=== PATIENT | male | born 1955 | race Caucasian/White ===

== ENCOUNTER 2019-01-05 16:05 | Inpatient (IN) | payer MEDICAID, OTHER ==
[~2019-01-05] VITALS: Ht 172.7 cm; Wt 87.0 kg
[2019-01-05] MEDS ORDERED: SOD CHLORIDE 0.9% 100 ML ONE (16:25)
[2019-01-05] MEDS ORDERED: IOHEXOL 100 ML ONE (16:25)
--- NOTE | 2019-01-05 16:30 | ERD ---
ER Documentation Chief Complaint Chief Complaint LOST BALANCE, CHANGES IN SPEECH THIS AM , LAST NORMAL SEEN LAST NIGHT HPI 63-year-old male with a history of hypertension presenting for left-sided leg and arm weakness, leg worse in his arm. He also noticed that he was having some difficulty speaking when he woke up. His last known well was last night at 10 PM when he went to sleep. At that time he was not having any of the symptoms. However he states that he had some difficulty sleeping but does not know why. He states that he also feels off balance when he is walking. ROS All systems reviewed and are negative except as per history of present illness. Medications Home Meds Reported Medications Pravastatin Sodium* (Pravastatin Sodium*) 10 Mg Tablet, 10 MG PO HS, TAB PT GETS THIS FROM [place] 01/05/19 Enalapril Maleate* (Enalapril Maleate*) 10 Mg Tablet, 10 MG PO BID, TAB 01/05/19 Allergies Allergies: Coded Allergies: No Known Allergy (Unverified , 01/05/19) PMhx/Soc Hx Miscellaneous Medical Probl: Yes (Hypertension) Hx Alcohol Use: No Hx Substance Use: No Hx Tobacco Use: Yes Smoking Status: Current every day smoker FmHx Family History: coronary disease; No diabetes Physical Exam Vitals Vital Signs Date Temp Pulse Resp B/P (MAP) Pulse Ox O2 O2 Flow FiO2 Time Delivery Rate 01/05/19 72 18 166/99 99 Room Air 18:20 (121) 01/05/19 73 16 166/99 98 Room Air 18:20 (121) 01/05/19 78 20 97 Room Air 17:37 01/05/19 98.1 87 20 172/96 100 Room Air 16:25 (121) 01/05/19 98.1 89 18 204/91 99 16:10 (128) Physical Exam Const: No acute distress Head: Atraumatic Eyes: Normal Conjunctiva, PERRLA, EOMI, no nystagmus ENT: Normal External Ears, Nose and Mouth. Neck: Full range of motion. No meningismus. Resp: Clear to auscultation bilaterally Cardio: Regular rate and rhythm, no murmurs. 2+ distal pulses in all 4 extremities Abd: Soft, non tender, non distended. Normal bowel sounds Skin: No petechiae or rashes Back: No midline or flank tenderness Ext: No cyanosis, or edema Neur: Awake and alert, no facial asymmetry, slightly slurred speech. Cranial nerves grossly intact. Strength and sensations intact in all 4 extremities. No pronator drift. Able to lift all of extremities against gravity and hold for 10 seconds. Normal steady gait. Normal balance. Psych: Normal Mood and Affect Result Diagram: 01/05/19 1620 01/05/19 1620 Results 24 hrs Laboratory Tests Test 01/05/19 16:20 01/05/19 16:35 01/05/19 17:30 White Blood Count 9.3 10^3/ul Red Blood Count 5.77 10^6/ul Hemoglobin 14.6 g/dl Hematocrit 43.8 % Mean Corpuscular Volume 75.9 fl Mean Corpuscular Hemoglobin 25.3 pg Mean Corpuscular 33.3 g/dl Hemoglobin Concent Red Cell Distribution Width 13.9 % Platelet Count 251 10^3/UL Mean Platelet Volume 10.9 fl Immature Granulocytes % 0.300 % Neutrophils % 57.3 % Lymphocytes % 32.7 % Monocytes % 6.1 % Eosinophils % 2.8 % Basophils % 0.8 % Nucleated Red Blood Cells % 0.0 /100WBC Immature Granulocytes # 0.030 10^3/ul Neutrophils # 5.4 10^3/ul Lymphocytes # 3.1 10^3/ul Monocytes # 0.6 10^3/ul Eosinophils # 0.3 10^3/ul Basophils # 0.1 10^3/ul Nucleated Red Blood Cells # 0.0 10^3/ul Prothrombin Time 12.0 Sec Prothrombin Time Ratio 0.9 INR International 0.88 Normalized Ratio Activated Partial Thromboplast 27.5 Sec Time Sodium Level 141 mmol/L Potassium Level 4.1 mmol/L Chloride Level 106 mmol/L Carbon Dioxide Level 23 mmol/L Anion Gap 12 Blood Urea Nitrogen 12 mg/dl Creatinine 0.75 mg/dl Est Glomerular Filtrat > 60 mL/min Rate mL/min Glucose Level 152 mg/dl Hemoglobin A1c 9.5 % Calcium Level 9.4 mg/dl Creatine Kinase 114 IU/L Creatine Kinase Index 1.1 Creatinine Kinase MB (Mass) 1.20 ng/ml Troponin I < 0.012 ng/ml Triglycerides Level 220 mg/dl Cholesterol Level 177 mg/dl LDL Cholesterol, Calculated 98 mg/dl HDL Cholesterol 35 mg/dl Cholesterol/HDL Ratio 5.0 RATIO Ethyl Alcohol Level < 10.0 mg/dl Bedside Glucose 144 mg/dL Urine Color YELLOW Urine Clarity CLEAR Urine pH 5.0 Urine Specific [place] 1.038 Urine Ketones NEGATIVE mg/dL Urine Nitrite NEGATIVE mg/dL Urine Bilirubin NEGATIVE mg/dL Urine Urobilinogen NEGATIVE mg/dL Urine Leukocyte Esterase 1+ Manan/ul Urine Microscopic RBC 1 /HPF Urine Microscopic WBC 2 /HPF Urine Hemoglobin 2+ mg/dL Urine Glucose NEGATIVE mg/dL Urine Total Protein NEGATIVE mg/dl Urine Opiates Screen Negative Urine Barbiturates Negative Urine Amphetamines Screen Negative Urine Benzodiazepines Screen Negative Urine Cocaine Screen Negative Urine Cannabinoids Negative Current Medications Medications Dose Sig/Antonio Start Time Status Last (Trade) Ordered Route PRN Stop Time Admin Dose Reason Admin IV Flush 10 ml STK-MED 01/05/19 DC (NS 10 ml) ONCE .ROUTE 16:25 01/05/19 16:26 Sodium 100 ml @ ud STK-MED 01/05/19 DC Chloride ONCE .ROUTE 16:01/05/19 16:26 Iohexol 100 ml @ ud STK-MED 01/05/19 DC ONCE .ROUTE 16:25 01/05/19 16:26 Aspirin 325 mg ONCE ONCE 01/05/19 DC 01/05/19 (Aspirin) PO 17:00 01/05/19 16:56 17:01 Clopidogrel 600 mg ONCE ONCE 01/05/19 DC 01/05/19 Bisulfate PO 17:00 01/05/19 16:56 (plaVIX) 17:01 Ondansetron 4 mg ER BRIDGE 01/05/19 HCl (Zofran PRN IV 18:00 01/06/19 Inj) NAUSEA/VOMITI 17:59 NG 650 mg ER BRIDGE 01/05/19 Acetaminophen PRN PO 18:00 01/06/19 (Tylenol .MILD PAIN 17:59 Tab) 1-3 OR TEMP Procedures/MDM EMERGENT LABS AND DIAGNOSTIC STUDIES: Lab Results above were reviewed and interpreted by me. CBC: no anemia or evidence of infection BMP: No e/o clinically significant electrolyte abnormality severe acidosis, alkalosis, renal failure, diabetic ketoacidosis Troponin within normal limits, not indicative of cardiac ischemia 12-lead EKG was interpreted by Sergio Segovia MD: Normal Sinus Rhythm with ventricular rate of 78 beats per minute Normal axis Normal intervals No acute ST or T wave changes suggestive of acute ischemia or STEMI. Radiology Results as interpreted by Radiology below were reviewed by Vincent Segovia MD: CT head shows no acute abnormalities CTA brain and neck: Multivessel stenosis seen, no vessel occlusions Initial Nursing notes reviewed. Previous Medical Records requested via the Electronic Health Record. EMERGENCY DEPARTMENT COURSE / MEDICAL DECISION MAKING: Immediately evaluated this patient upon arrival. He has dysarthria on exam but no focal weakness or sensory deficit elicited on exam. No evidence of a large vessel stroke symptoms. Patient is outside of the TPA window as his last known well was at 10 PM last night, greater than 12 hours ago. Since he was still in the thrombectomy window, CT and CTA of the brain and neck were ordered. I spoke with the tele-neurologist, Dr. Humble Martinez, who agrees that the patient would not be a TPA and likely would not be an interventional candidate. He evaluated the patient and based on the imaging studies and his exam, he recommended admission for further stroke work-up. He also recommended starting the patient on high-dose aspirin and giving him a load of Plavix orally. After reviewing his CTA results, he does not think patient is an interventional candidate. Critical Care Time: 45 minutes Treatments/Evaluations: Close monitoring and treatment of unstable vital signs, cardiorespiratory, and neurologic status, while maintaining tight balance of fluid, respiratory, and cardiac interventions. This time includes discussing the case with the patient and the patients family. This time does not include all procedures stated elsewhere in this record. This time also includes reviewing old records, labs and radiological studies. This time includes examining and re- examining the patient. Additionally, this time also includes arranging care with admitting and consulting physicians. Accepting Care Team: Current data and ongoing care discussed. Time: Time of admission Primary Provider: Dr. Sheikh Consulting: Dr. Sterling Martinez Outstanding Data: none Departure Diagnosis: Primary Impression: Dysarthria Additional Impression: Subjective weakness Condition: Serious JOHANNA SEGOVIA MD Jan 05, 2019 16:30
--- NOTE | 2019-01-05 16:46 | STROKE ---
Date/Time of Note Date/Time of Note DATE: 01/05/19 TIME: 16:45 Patient Information General Patient location: emergency Arrival Date Age 63 Gender male Weight 88.7 kg POC Glucose Glucose Result Bedside Glucose - 72 Hours Test 01/05/19 16:35 Bedside Glucose 144 mg/dL (70-220) Vital Signs Vital Signs Vital Signs Date Temp Pulse Resp B/P (MAP) Pulse Ox O2 O2 Flow FiO2 Time Delivery Rate 01/05/19 98.1 87 20 172/96 100 Room Air 16:25 (121) Patient History Current Medications Allergies: Coded Allergies: No Known Allergy (Unverified , 01/05/19) History & Physical History of Present Illness 63 M PMH smoker, HTN LKW 2200 PST 01/04/2019 with wake-up dysarthria and mild left hemiparesis NIH Stroke Scale NIH Stroke Scale [id number] Total Score: [id number] Date/Time Recorded DATE: 01/05/19 TIME: 16:45 Submitted By Sterling Schneider t-PA Imaging Review Date/Time Imaging Reviewed DATE: 01/05/19 TIME: 16:45 t-PA Administration Recommendation: No Weight 88.7 kg Recommedation submitted by Sterling Schneider Reason t-PA not Recommended Not in window Recommendations Recommendation 63 M with clinical small-vessel stroke causing dysarthria and mild left hemiparesis. Not acute intervention candidate. - Admission for initial stroke studies: MRI Brain, TTE with bubble, blood cultures, telemetry, EKG, LDL, A1c, SP, PT, OT. Further testing per these initial results/evaluations - F/u pending CTA Head/Neck report - Perform bedside swallow testing in ED and load with ASA 325 mg PO and Plavix 600 mg PO if passes and not already on these agents at home. Would continue ASA at 81 mg PO QD and Plavix at 75 mg PO QD starting tomorrow. Duration of dual- antiplatelet therapy per local Neurology team - Frequent neuro checks per protocol - Strict normonatremia, normothermia, normoglycemia - Permissive SBP to 180 for first 24 hours during stroke work-up - Please consult local Neurologist to guide further recs STERLING SCHNEIDER MD Jan 05, 2019 16:46
[2019-01-05] MEDS ORDERED: ASPIRIN 325 MG TAB PO ONE (17:00)
[2019-01-05] MEDS ORDERED: CLOPIDOGREL 75 MG TAB PO ONE (17:00)
[2019-01-05] MEDS ORDERED: ENAL10TA PO (17:29)
[2019-01-05] MEDS ORDERED: PRAV10TA43 PO (17:29)
[2019-01-05] MEDS ORDERED: ONDANSETRON 4 MG INJ IV PRN ×2 (18:00→19:00)
[2019-01-05] MEDS ORDERED: ACETAMINOPHEN 325 MG TAB PO PRN ×2 (18:00→19:00)
--- NOTE | 2019-01-05 18:56 | HP ---
Date/Time of Note Date/Time of Note DATE: 01/05/19 TIME: 18:54 Assessment/Plan VTE Prophylaxis SCD applied (from Nsg): Yes Pharmacological prophylaxis: other Lines/Catheters IV Catheter Type (from Nrsg): Saline Lock Assessment/Plan Hospital Course A/P: 63 M p/w: #Slurred speech left-sided weakness: Rule out stroke versus TIA. 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 -Allow for permissive hypertension, continue PT, OT, speech therapy consult -Continue aspirin Plavix as recommended by telemetry neurologist -Check MRI of the brain, echocardiogram, carotid Doppler study, high-dose statin -Neurochecks every 4 hours and get neurology consult #Smoking history: Counseled on cessation, ordered for nicotine patch # HTN: Patient did present with systolic blood pressure in the low 200 range, again allow for permissive hypertension at least for the first 24 hours so hold home blood pressure medicines for now Result Diagram: 01/05/19 1620 01/05/19 1620 Results 24hrs Laboratory Tests Test 01/05/19 16:20 01/05/19 16:35 01/05/19 17:30 White Blood Count 9.3 Red Blood Count 5.77 Hemoglobin 14.6 Hematocrit 43.8 Mean Corpuscular Volume 75.9 L Mean Corpuscular Hemoglobin 25.3 L Mean Corpuscular Hemoglobin Concent 33.3 Red Cell Distribution Width 13.9 Platelet Count 251 Mean Platelet Volume 10.9 H Immature Granulocytes % 0.300 Neutrophils % 57.3 Lymphocytes % 32.7 Monocytes % 6.1 Eosinophils % 2.8 Basophils % 0.8 Nucleated Red Blood Cells % 0.0 Immature Granulocytes # 0.030 Neutrophils # 5.4 Lymphocytes # 3.1 H Monocytes # 0.6 Eosinophils # 0.3 Basophils # 0.1 Nucleated Red Blood Cells # 0.0 Prothrombin Time 12.0 Prothrombin Time Ratio 0.9 INR International Normalized Ratio 0.88 Activated Partial Thromboplast Time 27.5 Sodium Level 141 Potassium Level 4.1 Chloride Level 106 Carbon Dioxide Level 23 Anion Gap 12 Blood Urea Nitrogen 12 Creatinine 0.75 Est Glomerular Filtrat Rate mL/min > 60 Glucose Level 152 Hemoglobin A1c 9.5 H Calcium Level 9.4 Creatine Kinase 114 Creatine Kinase Index 1.1 Creatinine Kinase MB (Mass) 1.20 Troponin I < 0.012 Triglycerides Level 220 H Cholesterol Level 177 LDL Cholesterol, Calculated 98 HDL Cholesterol 35 Cholesterol/HDL Ratio 5.0 Ethyl Alcohol Level < 10.0 H Bedside Glucose 144 Urine Color YELLOW Urine Clarity CLEAR Urine pH 5.0 Urine Specific [place] 1.038 H Urine Ketones NEGATIVE Urine Nitrite NEGATIVE Urine Bilirubin NEGATIVE Urine Urobilinogen NEGATIVE Urine Leukocyte Esterase 1+ H Urine Microscopic RBC 1 Urine Microscopic WBC 2 Urine Hemoglobin 2+ H Urine Glucose NEGATIVE Urine Total Protein NEGATIVE Urine Opiates Screen Negative Urine Barbiturates Negative Urine Amphetamines Screen Negative Urine Benzodiazepines Screen Negative Urine Cocaine Screen Negative Urine Cannabinoids Negative HPI/ROS Admit Date/Time Admit Date/Time Hx of Present Illness 63-year-old male past medical history of hypertension, smoking, who presents with left-sided leg and arm weakness. Symptoms began early this morning, patient also noticed that he was having some difficulty speaking when he woke up today. The last known well was last night at 10 PM when patient went to sleep, although patient stated that he had some difficulty sleeping but does not know why. He states that he also feels off balance when he is walking. Denies chest pain, shortness of breath, upper lower GI bleeding, fever chills, diarrhea constipation, nausea or vomiting. When the patient came in today code stroke was called and patient was given Plavix loading dose and aspirin. 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 PMH/Family/Social Past Medical History Medications Current Medications Ondansetron HCl (Zofran Inj) 4 mg ER BRIDGE PRN IV NAUSEA/VOMITING; Start 01/05/19 at 18:00; Stop 01/06/19 at 17:59 Acetaminophen (Tylenol Tab) 650 mg ER BRIDGE PRN PO .MILD PAIN 1-3 OR TEMP; Start 01/05/19 at 18:00; Stop 01/06/19 at 17:59 Coded Allergies: No Known Allergy (Unverified , 01/05/19) Past Surgical History Past Surgical Hx: no surgical history Social History Alcohol Use: none Smoking Status: Current every day smoker Drug Use: none Exam/Review of Systems Vital Signs Vitals Vital Signs Date Temp Pulse Resp B/P (MAP) Pulse Ox O2 O2 Flow FiO2 Time Delivery Rate 01/05/19 72 18 166/99 99 Room Air 18:20 (121) 01/05/19 98.1 16:25 Exam Exam Gen: lying in bed, No acute distress Head: Atraumatic Eyes: Normal Conjunctiva, PERRLA, EOMI, no nystagmus ENT: Normal External Ears, Nose and Mouth. Neck: Full range of motion. No meningismus. Resp: Clear to auscultation bilaterally Cardio: Regular rate and rhythm, no murmurs. 2+ distal pulses in all 4 extremities Abd: Soft, non tender, non distended. Normal bowel sounds Ext: No LE edema B/L Neuro: Awake and alert, no facial asymmetry, slightly slurred speech. Cranial nerves grossly intact. Strength and sensations intact in all 4 extremities. TERESSA PEARSON. Jan 05, 2019 18:56
[2019-01-05] MEDS ORDERED: HYDROCODONE/APAP (5/325) TAB PO PRN (19:00)
[2019-01-05] MEDS ORDERED: morphine 2 MG INJ IV PRN (19:00)
[2019-01-05] MEDS ORDERED: NITROGLYCERIN (SL) 0.4 MG TAB SL PRN (19:00)
[2019-01-05] MEDS ORDERED: MAGNESIUM HYDROXIDE 30ML CUP PO PRN (19:00)
[2019-01-05] MEDS ORDERED: LORAZEPAM 2 MG INJ IV PRN (19:00)
[2019-01-05] MEDS ORDERED: DOCUSATE SODIUM 100 MG CAP PO PRN (19:00)
[2019-01-05] MEDS ORDERED: ALBUTEROL/IPRATROPIUM (NEB) 3 ML AMP HHN PRN (19:00)
[2019-01-05] MEDS ORDERED: NACL 0.9% 3 ML SYG IV SCH (19:00)
[2019-01-05] MEDS ORDERED: hydrALAzine 20 MG INJ IV PRN (19:00)
--- NOTE | 2019-01-05 20:30 | CONSI ---
Assessment/Plan Assessment/Plan Assessment/Plan (Recall) 63 M c/ known HTN and tobacco dependence, who presents for evaluation of left hemiparesis and dysarthria concerning for acute stroke. CTH was w/o obvious acute pathology, though notable for a chronic lacune. CTA Head showed intracranial atherosclerosis.. TTE was unrevealing.. LDL 95; A1C >9%, UDS Neg P: Await MRI brain for further characterization Agree w/ asa/plavix daily for 3 month, then Plavix monotherapy thereafter Lipitor 80mg hs for now (goal LDL < 70) Ceo [employer] re: tobacco cessation PT/OT/ST as necessary BP, glucose and other medical management per primary Will follow clinically Consultation Date/Type/Reason Admit Date/Time Type of Consult Neurology Reason for Consultation left sided weakness Requesting Provider: TERESSA PEARSON Date/Time of Note DATE: 01/05/19 TIME: 20:30 Hx of Present Illness 63-year-old male past medical history of hypertension, smoking, who presents with left-sided leg and arm weakness. Symptoms began early this morning, patient also noticed that he was having some difficulty speaking when he woke up today. The last known well was last night at 10 PM when patient went to sleep, although patient stated that he had some difficulty sleeping but does not know why. He states that he also feels off balance when he is walking. Denies chest pain, shortness of breath, upper lower GI bleeding, fever chills, diarrhea constipation, nausea or vomiting. When the patient came in today code stroke was called and patient was given Plavix loading dose and aspirin. 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 per HPI Objective Exam Vitals Vital Signs Date Temp Pulse Resp B/P (MAP) Pulse Ox O2 O2 Flow FiO2 Time Delivery Rate 01/05/19 70 16 183/92 98 Room Air 20:19 (122) 01/05/19 98.1 16:25 Exam PE: Gen Appearance: No Apparent Distress HEENT: Normocephalic Cardiovascular: Regular rate Lungs: Clear bilaterally Abdomen: Soft Extremities: Dry NE: The patient was alert and oriented. Language was normal. Fund of knowledge was normal. Pupils were equal and reactive to light. There was no afferent pupillary defect. Visual young were normal. Funduscopic examination was limited. Extra-ocular movements were full. Ptosis was absent. There was no nystagmus. Facial sensation was normal. Face was symmetric with normal strength. Hearing was intact. Palate movements were normal. Neck strength was normal. There was normal tongue bulk and speed of movement. There is mild dysarthria. Tone was normal. Muscle bulk was normal. I did not see fasciculations. Left leg was mildly weak. Vibration sensation was normal. Temperature and pinprick sensation was normal. Rapid alternating movements were normal. There was no dysmetria. There was no intention tremor. Gait was deferred due to bedrest. Arm and leg reflexes were symmetric. Hill's sign was absent. Plantar responses were flexor. Results Result Diagram: 01/05/19 1620 01/05/19 1620 Results 24hrs Laboratory Tests Test 01/05/19 16:20 01/05/19 16:35 01/05/19 17:30 White Blood Count 9.3 Red Blood Count 5.77 Hemoglobin 14.6 Hematocrit 43.8 Mean Corpuscular Volume 75.9 L Mean Corpuscular Hemoglobin 25.3 L Mean Corpuscular Hemoglobin Concent 33.3 Red Cell Distribution Width 13.9 Platelet Count 251 Mean Platelet Volume 10.9 H Immature Granulocytes % 0.300 Neutrophils % 57.3 Lymphocytes % 32.7 Monocytes % 6.1 Eosinophils % 2.8 Basophils % 0.8 Nucleated Red Blood Cells % 0.0 Immature Granulocytes # 0.030 Neutrophils # 5.4 Lymphocytes # 3.1 H Monocytes # 0.6 Eosinophils # 0.3 Basophils # 0.1 Nucleated Red Blood Cells # 0.0 Prothrombin Time 12.0 Prothrombin Time Ratio 0.9 INR International Normalized Ratio 0.88 Activated Partial Thromboplast Time 27.5 Sodium Level 141 Potassium Level 4.1 Chloride Level 106 Carbon Dioxide Level 23 Anion Gap 12 Blood Urea Nitrogen 12 Creatinine 0.75 Est Glomerular Filtrat Rate mL/min > 60 Glucose Level 152 Hemoglobin A1c 9.5 H Calcium Level 9.4 Creatine Kinase 114 Creatine Kinase Index 1.1 Creatinine Kinase MB (Mass) 1.20 Troponin I < 0.012 Triglycerides Level 220 H Cholesterol Level 177 LDL Cholesterol, Calculated 98 HDL Cholesterol 35 Cholesterol/HDL Ratio 5.0 Free Thyroxine 1.36 Ethyl Alcohol Level < 10.0 H Bedside Glucose 144 Urine Color YELLOW Urine Clarity CLEAR Urine pH 5.0 Urine Specific [place] 1.038 H Urine Ketones NEGATIVE Urine Nitrite NEGATIVE Urine Bilirubin NEGATIVE Urine Urobilinogen NEGATIVE Urine Leukocyte Esterase 1+ H Urine Microscopic RBC 1 Urine Microscopic WBC 2 Urine Hemoglobin 2+ H Urine Glucose NEGATIVE Urine Total Protein NEGATIVE Urine Opiates Screen Negative Urine Barbiturates Negative Urine Amphetamines Screen Negative Urine Benzodiazepines Screen Negative Urine Cocaine Screen Negative Urine Cannabinoids Negative Past Medical History reviewed Home Meds Reported Medications Pravastatin Sodium* (Pravastatin Sodium*) 10 Mg Tablet, 10 MG PO HS, TAB PT GETS THIS FROM [place] 01/05/19 Enalapril Maleate* (Enalapril Maleate*) 10 Mg Tablet, 10 MG PO BID, TAB 01/05/19 Medications Current Medications IV Flush (NS 3 ml) 3 ml PER PROTOCOL IV ; Start 01/05/19 at 19:00 Ondansetron HCl (Zofran Inj) 4 mg Q6H PRN IV NAUSEA/VOMITING; Start 01/05/19 at 19:00 Acetaminophen (Tylenol Tab) 650 mg Q6H PRN PO .PAIN 1-3 OR TEMP; Start 01/05/19 at 19:00 Acetaminophen/ Hydrocodone Bitart ([place] (5/325)) 1 tab Q6H PRN PO .MOD PAIN 4-6; Start 01/05/19 at 19:00 Morphine Sulfate (morphine) 2 mg Q4H PRN IV .SEVERE PAIN 7-10; Start 01/05/19 at 19:00 Docusate Sodium (Colace) 100 mg Q12H PRN PO .CONSTIPATION; Start 01/05/19 at 19:00 Magnesium Hydroxide (Milk Of Mag) 30 ml DAILY PRN PO .CONSTIPATION; Start 01/05/19 at 19:00 Famotidine (Pepcid) 20 mg DAILY PO ; Start 01/05/19 at 19:00 Sodium Chloride 1,000 ml @ 75 mls/hr [id number] IV ; Start 01/05/19 at 18:49 Lorazepam (Ativan) 0.5 mg Q6H PRN IV ANXIETY; Start 01/05/19 at 19:00 Albuterol/ Ipratropium (Duoneb) 3 ml Q4H RESP THERAPY PRN HHN SHORTNESS OF BREATH; Start 01/05/19 at 19:00 Hydralazine HCl (Apresoline) 10 mg Q6H PRN IV ELEVATED BLOOD PRESSURE; Start 01/05/19 at 19:00 Nitroglycerin (Nitroglycerin (Sl Tab) 0.4 Mg) 1 tab Q5M PRN SL ANGINA; Start 01/05/19 at 19:00 Nicotine (Nicoderm 21 Mg/ 24hr) 1 patch DAILY TRANSDERM ; Start 01/06/19 at 09:00 Aspirin (Ecotrin) 325 mg DAILY PO ; Start 01/06/19 at 09:00 Clopidogrel Bisulfate (plaVIX) 75 mg DAILY PO ; Start 01/06/19 at 09:00 Allergies: Coded Allergies: No Known Allergy (Unverified , 01/05/19) Past Surgical History Past Surgical Hx: no surgical history Social History Alcohol Use: none Smoking Status: Current every day smoker Drug Use: none SANTIAGO HONEYCUTT Jan 05, 2019 20:30
[2019-01-05] MEDS: FAMOTIDINE 20 MG TAB PO SCH (21:32)
[2019-01-05] MEDS: SOD CHLORIDE 0.45% 1,000 ML IV SCH (21:35)
[2019-01-05 23:05] VITALS: Ht 172.7 cm; Wt 87.0 kg
[2019-01-05 23:14] VITALS: BP 183/93; PULSE 69; RESP 18
[2019-01-06] VITALS: BP 174/94; PULSE 72; RESP 18
[2019-01-06] MEDS ORDERED: GLUCOSE GEL 15 GRAM TUBE PO PRN ×2 (01:30)
[2019-01-06] MEDS ORDERED: GLUCAGON 1 MG INJ IM PRN (01:30)
[2019-01-06] MEDS ORDERED: DEXTROSE 50% 50 ML SYRINGE IV PRN ×2 (01:30)
[2019-01-06] MEDS ORDERED: GLUCOSE GEL 15 GRAM TUBE BUCCAL PRN (01:30)
[2019-01-06 04:00] VITALS: BP 141/90; PULSE 73; RESP 20
[2019-01-06] MEDS: INSULIN ASPART [NOVOLOG] 3 ML PEN SC SCH ×5 (05:00→21:10)
[2019-01-06 07:21] VITALS: BP 144/81; PULSE 68; RESP 20
[2019-01-06] MEDS: NICOTINE (21 MG/24 HR) PATCH TRANSDERM SCH (09:00)
[2019-01-06] MEDS ORDERED: ASPIRIN (EC) 325 MG TAB PO SCH (09:00)
--- NOTE | 2019-01-06 09:15 | PN ---
Date/Time of Note Date/Time of Note DATE: 01/06/19 TIME: 09:08 Assessment/Plan VTE Prophylaxis SCD applied (from Nsg): Yes Pharmacological prophylaxis: other Lines/Catheters IV Catheter Type (from Nrsg): Saline Lock Assessment/Plan Hospital Course S: Patient with less focal deficits now, waiting to be seen by neurology team is still waiting for brain MRI. Asking when he can eat. O: VS- see below PE: Gen: lying in bed, No acute distress Head: Atraumatic Eyes: Normal Conjunctiva, PERRLA, EOMI, no nystagmus ENT: Normal External Ears, Nose and Mouth. Neck: Full range of motion. No meningismus. Resp: Clear to auscultation bilaterally Cardio: Regular rate and rhythm, no murmurs. 2+ distal pulses in all 4 ext remities Abd: Soft, non tender, non distended. Normal bowel sounds Ext: No LE edema B/L Neuro: Awake and alert, no facial asymmetry, slightly slurred speech. Cranial nerves grossly intact. Strength and sensations intact in all 4 extremities. A/P: 63 M p/w: #Slurred speech left-sided weakness: Rule out stroke versus TIA. 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 -For now continue to allow for permissive hypertension, continue PT, OT, speech therapy consult -Continue aspirin and Plavix as recommended by telemetry neurologist -Follow-up results of MRI of the brain, echocardiogram, continue high-dose statin -Neurochecks every 4 hours and follow-up further recommendations from neurology consult #Smoking history: Counseled on cessation, nicotine patch # HTN: Patient did present with systolic blood pressure in the low 200 range, again allow for permissive hypertension at least for the first 24 hours so hold home blood pressure medicines for now Result Diagram: 01/06/19 0536 01/06/19 0536 Results 24hrs Laboratory Tests Test 01/05/19 16:20 01/05/19 16:35 01/05/19 17:30 01/06/19 01:29 White Blood Count 9.3 Red Blood Count 5.77 Hemoglobin 14.6 Hematocrit 43.8 Mean Corpuscular Volume 75.9 L Mean Corpuscular 25.3 L Hemoglobin Mean Corpuscular 33.3 Hemoglobin Concent Red Cell Distribution 13.9 Width Platelet Count 251 Mean Platelet Volume 10.9 H Immature Granulocytes % 0.300 Neutrophils % 57.3 Lymphocytes % 32.7 Monocytes % 6.1 Eosinophils % 2.8 Basophils % 0.8 Nucleated Red Blood 0.0 Cells % Immature Granulocytes # 0.030 Neutrophils # 5.4 Lymphocytes # 3.1 H Monocytes # 0.6 Eosinophils # 0.3 Basophils # 0.1 Nucleated Red Blood 0.0 Cells # Prothrombin Time 12.0 Prothrombin Time Ratio 0.9 INR International 0.88 Normalized Ratio Activated 27.5 Partial Thromboplast Time Sodium Level 141 Potassium Level 4.1 Chloride Level 106 Carbon Dioxide Level 23 Anion Gap 12 Blood Urea Nitrogen 12 Creatinine 0.75 Est Glomerular Filtrat > 60 Rate mL/min Glucose Level 152 Hemoglobin A1c 9.5 H Calcium Level 9.4 Creatine Kinase 114 Creatine Kinase Index 1.1 Creatinine Kinase MB 1.20 (Mass) Troponin I < 0.012 Triglycerides Level 220 H Cholesterol Level 177 LDL Cholesterol, 98 Calculated HDL Cholesterol 35 Cholesterol/HDL Ratio 5.0 Free Thyroxine 1.36 Ethyl Alcohol Level < 10.0 H Bedside Glucose 144 125 Urine Color YELLOW Urine Clarity CLEAR Urine pH 5.0 Urine Specific [place] 1.038 H Urine Ketones NEGATIVE Urine Nitrite NEGATIVE Urine Bilirubin NEGATIVE Urine Urobilinogen NEGATIVE Urine Leukocyte Esterase 1+ H Urine Microscopic RBC 1 Urine Microscopic WBC 2 Urine Hemoglobin 2+ H Urine Glucose NEGATIVE Urine Total Protein NEGATIVE Urine Opiates Screen Negative Urine Barbiturates Negative Urine Amphetamines Negative Screen Urine Benzodiazepines Negative Screen Urine Cocaine Screen Negative Urine Cannabinoids Negative Test 01/06/19 05:03 01/06/19 05:36 01/06/19 07:52 Bedside Glucose 136 151 White Blood Count 8.0 Red Blood Count 5.54 Hemoglobin 14.2 Hematocrit 42.0 Mean Corpuscular Volume 75.8 L Mean Corpuscular 25.6 L Hemoglobin Mean Corpuscular 33.8 Hemoglobin Concent Red Cell Distribution 14.1 Width Platelet Count 246 Mean Platelet Volume 11.0 H Immature Granulocytes % 0.400 Neutrophils % 57.9 Lymphocytes % 30.8 Monocytes % 6.5 Eosinophils % 3.8 Basophils % 0.6 Nucleated Red Blood 0.0 Cells % Immature Granulocytes # 0.030 Neutrophils # 4.6 Lymphocytes # 2.5 Monocytes # 0.5 Eosinophils # 0.3 Basophils # 0.1 Nucleated Red Blood 0.0 Cells # Sodium Level 141 Potassium Level 3.9 Chloride Level 102 Carbon Dioxide Level 28 Anion Gap 11 Blood Urea Nitrogen 11 Creatinine 0.83 Est Glomerular Filtrat > 60 Rate mL/min Glucose Level 136 Hemoglobin A1c 9.4 H Calcium Level 9.1 Phosphorus Level 3.9 Magnesium Level 1.7 Triglycerides Level 246 H Cholesterol Level 172 LDL Cholesterol, 95 Calculated HDL Cholesterol 28 L Cholesterol/HDL Ratio 6.1 Thyroid Stimulating 2.110 Hormone (TSH) Exam/Review of Systems Exam Vitals Vital Signs Date Temp Pulse Resp B/P (MAP) Pulse Ox O2 O2 Flow FiO2 Time Delivery Rate 01/06/19 98.0 68 20 144/81 93 Room Air 07:21 (102) Intake and Output 01/05/19 01/05/19 01/06/19 1515:00 23:00 07:00 OutputOutput Total 240 ml BalanceBalance -240 ml Results Results 24hrs Laboratory Tests Test 01/05/19 16:20 01/05/19 16:35 01/05/19 17:30 01/06/19 01:29 White Blood Count 9.3 Red Blood Count 5.77 Hemoglobin 14.6 Hematocrit 43.8 Mean Corpuscular Volume 75.9 L Mean Corpuscular 25.3 L Hemoglobin Mean Corpuscular 33.3 Hemoglobin Concent Red Cell Distribution 13.9 Width Platelet Count 251 Mean Platelet Volume 10.9 H Immature Granulocytes % 0.300 Neutrophils % 57.3 Lymphocytes % 32.7 Monocytes % 6.1 Eosinophils % 2.8 Basophils % 0.8 Nucleated Red Blood 0.0 Cells % Immature Granulocytes # 0.030 Neutrophils # 5.4 Lymphocytes # 3.1 H Monocytes # 0.6 Eosinophils # 0.3 Basophils # 0.1 Nucleated Red Blood 0.0 Cells # Prothrombin Time 12.0 Prothrombin Time Ratio 0.9 INR International 0.88 Normalized Ratio Activated 27.5 Partial Thromboplast Time Sodium Level 141 Potassium Level 4.1 Chloride Level 106 Carbon Dioxide Level 23 Anion Gap 12 Blood Urea Nitrogen 12 Creatinine 0.75 Est Glomerular Filtrat > 60 Rate mL/min Glucose Level 152 Hemoglobin A1c 9.5 H Calcium Level 9.4 Creatine Kinase 114 Creatine Kinase Index 1.1 Creatinine Kinase MB 1.20 (Mass) Troponin I < 0.012 Triglycerides Level 220 H Cholesterol Level 177 LDL Cholesterol, 98 Calculated HDL Cholesterol 35 Cholesterol/HDL Ratio 5.0 Free Thyroxine 1.36 Ethyl Alcohol Level < 10.0 H Bedside Glucose 144 125 Urine Color YELLOW Urine Clarity CLEAR Urine pH 5.0 Urine Specific [place] 1.038 H Urine Ketones NEGATIVE Urine Nitrite NEGATIVE Urine Bilirubin NEGATIVE Urine Urobilinogen NEGATIVE Urine Leukocyte Esterase 1+ H Urine Microscopic RBC 1 Urine Microscopic WBC 2 Urine Hemoglobin 2+ H Urine Glucose NEGATIVE Urine Total Protein NEGATIVE Urine Opiates Screen Negative Urine Barbiturates Negative Urine Amphetamines Negative Screen Urine Benzodiazepines Negative Screen Urine Cocaine Screen Negative Urine Cannabinoids Negative Test 01/06/19 05:03 01/06/19 05:36 01/06/19 07:52 Bedside Glucose 136 151 White Blood Count 8.0 Red Blood Count 5.54 Hemoglobin 14.2 Hematocrit 42.0 Mean Corpuscular Volume 75.8 L Mean Corpuscular 25.6 L Hemoglobin Mean Corpuscular 33.8 Hemoglobin Concent Red Cell Distribution 14.1 Width Platelet Count 246 Mean Platelet Volume 11.0 H Immature Granulocytes % 0.400 Neutrophils % 57.9 Lymphocytes % 30.8 Monocytes % 6.5 Eosinophils % 3.8 Basophils % 0.6 Nucleated Red Blood 0.0 Cells % Immature Granulocytes # 0.030 Neutrophils # 4.6 Lymphocytes # 2.5 Monocytes # 0.5 Eosinophils # 0.3 Basophils # 0.1 Nucleated Red Blood 0.0 Cells # Sodium Level 141 Potassium Level 3.9 Chloride Level 102 Carbon Dioxide Level 28 Anion Gap 11 Blood Urea Nitrogen 11 Creatinine 0.83 Est Glomerular Filtrat > 60 Rate mL/min Glucose Level 136 Hemoglobin A1c 9.4 H Calcium Level 9.1 Phosphorus Level 3.9 Magnesium Level 1.7 Triglycerides Level 246 H Cholesterol Level 172 LDL Cholesterol, 95 Calculated HDL Cholesterol 28 L Cholesterol/HDL Ratio 6.1 Thyroid Stimulating 2.110 Hormone (TSH) Medications Medication Current Medications IV Flush (NS 3 ml) 3 ml PER PROTOCOL IV ; Start 01/05/19 at 19:00 Ondansetron HCl (Zofran Inj) 4 mg Q6H PRN IV NAUSEA/VOMITING; Start 01/05/19 at 19:00 Acetaminophen (Tylenol Tab) 650 mg Q6H PRN PO .PAIN 1-3 OR TEMP; Start 01/05/19 at 19:00 Acetaminophen/ Hydrocodone Bitart ([place] (5/325)) 1 tab Q6H PRN PO .MOD PAIN 4- 6; Start 01/05/19 at 19:00 Morphine Sulfate (morphine) 2 mg Q4H PRN IV .SEVERE PAIN 7-10; Start 01/05/19 at 19:00 Docusate Sodium (Colace) 100 mg Q12H PRN PO .CONSTIPATION; Start 01/05/19 at 19:00 Magnesium Hydroxide (Milk Of Mag) 30 ml DAILY PRN PO .CONSTIPATION; Start 01/05/19 at 19:00 Famotidine (Pepcid) 20 mg DAILY PO Last administered on 01/05/19at 21:32; Admin Dose 20 MG; Start 01/05/19 at 19:00 Sodium Chloride 1,000 ml @ 75 mls/hr [id number] IV Last administered on 01/05/19at 21:35; Admin Dose 75 MLS/HR; Start 01/05/19 at 18:49 Lorazepam (Ativan) 0.5 mg Q6H PRN IV ANXIETY; Start 01/05/19 at 19:00 Albuterol/ Ipratropium (Duoneb) 3 ml Q4H RESP THERAPY PRN HHN SHORTNESS OF BREATH; Start 01/05/19 at 19:00 Hydralazine HCl (Apresoline) 10 mg Q6H PRN IV ELEVATED BLOOD PRESSURE; Start 01/05/19 at 19:00 Nitroglycerin (Nitroglycerin (Sl Tab) 0.4 Mg) 1 tab Q5M PRN SL ANGINA; Start 01/05/19 at 19:00 Nicotine (Nicoderm 21 Mg/ 24hr) 1 patch DAILY TRANSDERM ; Start 01/06/19 at 09:00 Aspirin (Ecotrin) 325 mg DAILY PO ; Start 01/06/19 at 09:00 Clopidogrel Bisulfate (plaVIX) 75 mg DAILY PO ; Start 01/06/19 at 09:00 Insulin Aspart (Novolog Insulin Pen) NOVOLOG *MILD* ALGORI... Q4 SC Last administered on 01/06/19at 08:21; Admin Dose 1 UNIT; Start 01/06/19 at 05:00 Miscellaneous Information 1 ea NOTE XX ; Start 01/06/19 at 01:30 Glucose (Glutose) 15 gm Q15M PRN PO DECREASED GLUCOSE; Start 01/06/19 at 01:30 Glucose (Glutose) 22.5 gm Q15M PRN PO DECREASED GLUCOSE; Start 01/06/19 at 01:30 Dextrose (D50w Syringe) 25 ml Q15M PRN IV DECREASED GLUCOSE; Start 01/06/19 at 01:30 Dextrose (D50w Syringe) 50 ml Q15M PRN IV DECREASED GLUCOSE; Start 01/06/19 at 01:30 Glucagon (Glucagen) 1 mg Q15M PRN IM DECREASED GLUCOSE; Start 01/06/19 at 01:30 Glucose (Glutose) 15 gm Q15M PRN BUCCAL DECREASED GLUCOSE; Start 01/06/19 at 01:30 TERESSA PEARSON Jan 06, 2019 09:15
[2019-01-06] MEDS: FAMOTIDINE 20 MG TAB PO SCH (10:18)
[2019-01-06] MEDS: ASPIRIN (EC) 325 MG TAB PO SCH (10:18)
[2019-01-06] MEDS: CLOPIDOGREL 75 MG TAB PO SCH (10:18)
[2019-01-06 11:16] VITALS: BP 160/88; PULSE 79; RESP 20
--- NOTE | 2019-01-06 11:18 | RADRPT ---
Echocardiogram Report Patient Name: Zenobia BARRY ID: [id number] : 1955 (63y 2m)Study Date: 01/06/2019 7:20:35 AM Gender: Charissecession #: [id number] Tech: MT Location: [facility] Ref.Physician: TERESSA PEARSON Height(Cm): BSA: Weight(Kg): Quality: GoodOrder Physician: TERESSA PEARSON Account #: Procedures: Echocardiographic Report: Transthoracic echocardiogram with complete 2D, M-Mode, and doppler examination. Indications: Transient Ischemic Attack. Measurements: 2D/M Mode Doppler Measurement Value Normal Range Measurement Value Normal Range LVIDd 2D 4.5 [ 4.2 - 5.8 ] cm AV Peak Jaison 1.3 [ 100.0 - 170.0 ] cm/sec LVIDs 2D 2.2 [ 2.5 - 4.0 ] cm AV Peak PG 7.0 [ 2.0 - 9.0 ] mmHg LVPWd 2D 1.1 [ 0.6 - 1.0 ] cm AI Peak PG 72.0 mmHg IVSd 2D 1.1 [ 0.6 - 1.0 ] cm AI Peak Jaison 4.2 cm/sec AoR Diam 2D 3.7 [ 2.6 - 3.4 ] cm AI PHT 827.0 msec EDV 2D 93.4 [ 62.0 - 150.0 ] ml LVOT Peak Jaison 1.2 [ 70.0 - 110.0 ] cm/sec ESV 2D 15.3 [ 21.0 - 61.0 ] ml LVOT Peak PG 6.0 [ 2.0 - 6.0 ] mmHg EF 2D 83.6 [ 52.0 - 72.0 ] percent MV E Peak Jaison 0.7 [ 60.0 - 130.0 ] cm/sec LA Dimen 2D 2.9 [ 3.0 - 4.0 ] cm MV A Peak Jaison 0.9 [ 100.0 - 120.0 ] cm/sec MV E/A 0.8 [ 0.8 - 1.5 ] ratio MV Decel Time 194 [ 104 - 258 ] msec MV E/A 0.8 [ 0.8 - 1.5 ] ratio TR Peak Jaison 2.4 [ 100.0 - 280.0 ] cm/sec TR Peak PG 24.0 mmHg RVSP 27.0 [ 10.0 - 36.0 ] mmHg RA Pressure 3.0 mmHg Findings: Left Ventricle: Normal left ventricular systolic function. Normal left ventricular cavity size. Mild concentric left ventricular hypertrophy. Ejection fraction is visually estimated at 60 %. Tissue Doppler/Mitral Doppler indices are consistent with impaired relaxation (Stage I diastolic dysfunction). Right Ventricle: Normal right ventricular size. Normal right ventricular systolic function. Left Atrium: The left atrium is normal in size. Right Atrium: The right atrium is normal in size. Mitral Valve: Normal appearance and function of the mitral valve with trace physiologic regurgitation. Aortic Valve: No hemodynamically significant aortic stenosis by doppler. Aortic cusps appear mildly calcified. Mild aortic valve regurgitation. Tricuspid Valve: Normal appearance of the tricuspid valve. The estimated Peak RVSP is 27 mmHg. There is trace tricuspid regurgitation. Pulmonic Valve: Normal pulmonic valve appearance. Pericardium: Normal pericardium with no significant pericardial effusion. Aorta: Normal aortic root. IVC: Normal size and normal respiratory collapse consistent with normal right atrial pressure. Conclusions: Normal left ventricular systolic function. Normal left ventricular cavity size. Mild concentric left ventricular hypertrophy. Ejection fraction is visually estimated at 60 %. Tissue Doppler/Mitral Doppler indices are consistent with impaired relaxation (Stage I diastolic dysfunction). Normal appearance and function of the mitral valve with trace physiologic regurgitation. Normal appearance of the tricuspid valve. The estimated Peak RVSP is 27 mmHg. There is trace tricuspid regurgitation. Electronically Signed By: Vitor Sierra 2019-01-06 11:17:26 PDT
[2019-01-06] MEDS: SOD CHLORIDE 0.45% 1,000 ML IV SCH ×2 (11:22→21:29)
[2019-01-06] MEDS: ATORVASTATIN 80 MG TAB PO SCH (12:12)
[2019-01-06 15:35] VITALS: BP 163/90; PULSE 70; RESP 20
--- NOTE | 2019-01-06 18:05 | CONS ---
Assessment/Plan Assessment/Plan Assessment/Plan (Recall) 63 M c/ known HTN and tobacco dependence, who presents for evaluation of left hemiparesis and dysarthria concerning for acute stroke. 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 CTA Head showed intracranial atherosclerosis....though without basliar artery involvement... TTE was unrevealing.. LDL 95; A1C >9%, UDS Neg P: AROLDO to further evaluate for possible cardioembolic source.. 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 Will follow clinically Consultation Date/Type/Reason Admit Date/Time Jan 05, 2019 at 17:43 Type of Consult Neurology Reason for Consultation left sided weakness Requesting Provider: TERESSA PEARSON Date/Time of Note DATE: 01/06/19 TIME: 17:59 24 HR Interval Summary Free Text/Dictation Continues acute care Exam/Review of Systems Exam Vitals Vital Signs Date Temp Pulse Resp B/P (MAP) Pulse Ox O2 O2 Flow FiO2 Time Delivery Rate 01/06/19 98.0 70 20 163/90 96 Room Air 15:35 (114) Intake and Output 01/05/19 01/05/19 01/06/19 1515:00 23:00 07:00 OutputOutput Total 240 ml BalanceBalance -240 ml Results Result Diagram: 01/06/19 0536 01/06/19 0536 Results 24hrs Laboratory Tests Test 01/06/19 01:29 01/06/19 05:03 01/06/19 05:36 01/06/19 07:52 Bedside Glucose 125 136 151 White Blood Count 8.0 Red Blood Count 5.54 Hemoglobin 14.2 Hematocrit 42.0 Mean Corpuscular Volume 75.8 L Mean Corpuscular 25.6 L Hemoglobin Mean Corpuscular 33.8 Hemoglobin Concent Red Cell Distribution 14.1 Width Platelet Count 246 Mean Platelet Volume 11.0 H Immature Granulocytes % 0.400 Neutrophils % 57.9 Lymphocytes % 30.8 Monocytes % 6.5 Eosinophils % 3.8 Basophils % 0.6 Nucleated Red Blood 0.0 Cells % Immature Granulocytes # 0.030 Neutrophils # 4.6 Lymphocytes # 2.5 Monocytes # 0.5 Eosinophils # 0.3 Basophils # 0.1 Nucleated Red Blood 0.0 Cells # Sodium Level 141 Potassium Level 3.9 Chloride Level 102 Carbon Dioxide Level 28 Anion Gap 11 Blood Urea Nitrogen 11 Creatinine 0.83 Est Glomerular Filtrat > 60 Rate mL/min Glucose Level 136 Hemoglobin A1c 9.4 H Calcium Level 9.1 Phosphorus Level 3.9 Magnesium Level 1.7 Triglycerides Level 246 H Cholesterol Level 172 LDL Cholesterol, 95 Calculated HDL Cholesterol 28 L Cholesterol/HDL Ratio 6.1 Thyroid Stimulating 2.110 Hormone (TSH) Test 01/06/19 12:10 01/06/19 17:21 Bedside Glucose 207 156 Medications Medication Current Medications IV Flush (NS 3 ml) 3 ml PER PROTOCOL IV ; Start 01/05/19 at 19:00 Ondansetron HCl (Zofran Inj) 4 mg Q6H PRN IV NAUSEA/VOMITING; Start 01/05/19 at 19:00 Acetaminophen (Tylenol Tab) 650 mg Q6H PRN PO .PAIN 1-3 OR TEMP; Start 01/05/19 at 19:00 Acetaminophen/ Hydrocodone Bitart ([place] (5/325)) 1 tab Q6H PRN PO .MOD PAIN 4- 6; Start 01/05/19 at 19:00 Morphine Sulfate (morphine) 2 mg Q4H PRN IV .SEVERE PAIN 7-10; Start 01/05/19 at 19:00 Docusate Sodium (Colace) 100 mg Q12H PRN PO .CONSTIPATION; Start 01/05/19 at 19:00 Magnesium Hydroxide (Milk Of Mag) 30 ml DAILY PRN PO .CONSTIPATION; Start at 19:00 Famotidine (Pepcid) 20 mg DAILY PO Last administered on 01/06/19at 10:18; Admin Dose 20 MG; Start 01/05/19 at 19:00 Sodium Chloride 1,000 ml @ 75 mls/hr [id number] IV Last administered on 01/06/19at 11:22; Admin Dose 75 MLS/HR; Start 01/05/19 at 18:49 Lorazepam (Ativan) 0.5 mg Q6H PRN IV ANXIETY; Start 01/05/19 at 19:00 Albuterol/ Ipratropium (Duoneb) 3 ml Q4H RESP THERAPY PRN HHN SHORTNESS OF BREATH; Start 01/05/19 at 19:00 Hydralazine HCl (Apresoline) 10 mg Q6H PRN IV ELEVATED BLOOD PRESSURE; Start 01/05/19 at 19:00 Nitroglycerin (Nitroglycerin (Sl Tab) 0.4 Mg) 1 tab Q5M PRN SL ANGINA; Start 01/05/19 at 19:00 Nicotine (Nicoderm 21 Mg/ 24hr) 1 patch DAILY TRANSDERM ; Start 01/06/19 at 09:00 Aspirin (Ecotrin) 325 mg DAILY PO Last administered on 01/06/19at 10:18; Admin Dose 325 MG; Start 01/06/19 at 09:00 Clopidogrel Bisulfate (plaVIX) 75 mg DAILY PO Last administered on 01/06/19at 10:18; Admin Dose 75 MG; Start 01/06/19 at 09:00 Insulin Aspart (Novolog Insulin Pen) NOVOLOG *MILD* ALGORI... Q4 SC Last administered on 01/06/19at 17:27; Admin Dose 1 UNIT; Start 01/06/19 at 05:00 Miscellaneous Information 1 ea NOTE XX ; Start 01/06/19 at 01:30 Glucose (Glutose) 15 gm Q15M PRN PO DECREASED GLUCOSE; Start 01/06/19 at 01:30 Glucose (Glutose) 22.5 gm Q15M PRN PO DECREASED GLUCOSE; Start 01/06/19 at 01:30 Dextrose (D50w Syringe) 25 ml Q15M PRN IV DECREASED GLUCOSE; Start 01/06/19 at 0 1:30 Dextrose (D50w Syringe) 50 ml Q15M PRN IV DECREASED GLUCOSE; Start 01/06/19 at 01:30 Glucagon (Glucagen) 1 mg Q15M PRN IM DECREASED GLUCOSE; Start 01/06/19 at 01:30 Glucose (Glutose) 15 gm Q15M PRN BUCCAL DECREASED GLUCOSE; Start 01/06/19 at 01:30 Atorvastatin Calcium (Lipitor) 80 mg DAILY PO Last administered on 01/06/19at 12:12; Admin Dose 80 MG; Start 01/06/19 at 09:30 SANTIAGO HONEYCUTT Jan 06, 2019 18:05
[2019-01-06 20:00] VITALS: BP 177/97; PULSE 78; RESP 20
[2019-01-07] VITALS: BP 162/92; PULSE 61; RESP 18
[2019-01-07 04:00] VITALS: BP 145/88; PULSE 69; RESP 18
[2019-01-07] MEDS: SOD CHLORIDE 0.45% 1,000 ML IV SCH ×2 (06:18→22:22)
[2019-01-07 07:35] VITALS: BP 163/93; PULSE 71; RESP 20
[2019-01-07] MEDS: CLOPIDOGREL 75 MG TAB PO SCH (08:23)
[2019-01-07] MEDS: ATORVASTATIN 80 MG TAB PO SCH (08:23)
[2019-01-07] MEDS: FAMOTIDINE 20 MG TAB PO SCH (08:24)
[2019-01-07] MEDS: ASPIRIN (EC) 325 MG TAB PO SCH (08:24)
[2019-01-07] MEDS: NICOTINE (21 MG/24 HR) PATCH TRANSDERM SCH (08:24)
--- NOTE | 2019-01-07 10:13 | PN ---
Date/Time of Note Date/Time of Note DATE: 01/07/19 TIME: 10:02 Assessment/Plan VTE Prophylaxis Risk score (from Ns)>0 risk: 2 SCD applied (from Nsg): Yes Pharmacological prophylaxis: other Lines/Catheters IV Catheter Type (from Nrsg): Peripheral IV Assessment/Plan Hospital Course S: Patient found with acute stroke findings on MRI of the brain. Seen by neurology team yesterday. O: VS- see below PE: Gen: lying in bed, No acute distress Head: Atraumatic Eyes: Normal Conjunctiva, PERRLA, EOMI, no nystagmus ENT: Normal External Ears, Nose and Mouth. Neck: Full range of motion. No meningismus. Resp: Clear to auscultation bilaterally Cardio: Regular rate and rhythm, no murmurs. 2+ distal pulses in all 4 extremities Abd: Soft, non tender, non distended. Normal bowel sounds Ext: No LE edema B/L Neuro: Awake and alert, no facial asymmetry, slightly slurred speech. Cranial nerves grossly intact. Strength and sensations intact in all 4 extremities. MRI brain: IMPRESSION: 1. 11 x 6 mm acute/recent infarct in the right estella, likely the etiology of patient's left lower extremity weakness. No evidence of hemorrhagic conversion. 2. 9 x 5 mm acute/infarct involving the left parietal/periatrial white matter. No evidence of hemorrhagic conversion. 3. Subtle increased signal on the diffusion weighted signal in the left anterior frontal lobe, which may be related to subacute infarct versus T2 shine through. 4. No intracranial hemorrhage, mass lesion or hydrocephalous. A/P: 63 M p/w: #Slurred speech left-sided weakness:MRI brain does show acute stroke as listed above. Neurology team on the case, patient with no current focal deficits however. -Per neurology team request, will consult cardiology team for AROLDO as they want to rule out possible cardioembolic stroke for this particular stroke -Continue PT, OT, speech therapy -Continue aspirin and Plavix -Continue Lipitor 80 mg daily -Neurochecks every 4 hours and follow-up further recommendations from neurology consult #Smoking history: Counseled on cessation, nicotine patch # Diabetes: A1c was 9.4, continue ISS # HTN: In the high normal range, will reintroduce home blood pressure medicines now Result Diagram: 01/07/19 0506 01/07/19 0506 Results 24hrs Laboratory Tests Test 01/06/19 12:10 01/06/19 17:21 01/06/19 20:02 01/07/19 05:06 Bedside Glucose 207 156 194 White Blood Count 7.3 Red Blood Count 5.43 Hemoglobin 13.7 L Hematocrit 41.1 L Mean Corpuscular Volume 75.7 L Mean Corpuscular 25.2 L Hemoglobin Mean Corpuscular 33.3 Hemoglobin Concent Red Cell Distribution 14.2 Width Platelet Count 256 Mean Platelet Volume 11.5 H Immature Granulocytes % 0.300 Neutrophils % 55.5 Lymphocytes % 33.6 Monocytes % 6.9 Eosinophils % 3.0 Basophils % 0.7 Nucleated Red Blood 0.0 Cells % Immature Granulocytes # 0.020 Neutrophils # 4.0 Lymphocytes # 2.4 Monocytes # 0.5 Eosinophils # 0.2 Basophils # 0.1 Nucleated Red Blood 0.0 Cells # Sodium Level 140 Potassium Level 3.8 Chloride Level 105 Carbon Dioxide Level 25 Anion Gap 10 Blood Urea Nitrogen 14 Creatinine 0.78 Est Glomerular Filtrat > 60 Rate mL/min Glucose Level 165 Calcium Level 9.2 Exam/Review of Systems Exam Vitals Vital Signs Date Temp Pulse Resp B/P (MAP) Pulse Ox O2 O2 Flow FiO2 Time Delivery Rate 01/07/19 98.0 71 20 163/93 99 Room Air 07:35 (116) Intake and Output 01/06/19 01/06/19 01/07/19 1515:00 23:00 07:00 IntakeIntake Total 480 ml 1130 ml OutputOutput Total 400 ml 600 ml BalanceBalance 80 ml 530 ml Results Results 24hrs Laboratory Tests Test 01/06/19 12:10 01/06/19 17:21 01/06/19 20:02 01/07/19 05:06 Bedside Glucose 207 156 194 White Blood Count 7.3 Red Blood Count 5.43 Hemoglobin 13.7 L Hematocrit 41.1 L Mean Corpuscular Volume 75.7 L Mean Corpuscular 25.2 L Hemoglobin Mean Corpuscular 33.3 Hemoglobin Concent Red Cell Distribution 14.2 Width Platelet Count 256 Mean Platelet Volume 11.5 H Immature Granulocytes % 0.300 Neutrophils % 55.5 Lymphocytes % 33.6 Monocytes % 6.9 Eosinophils % 3.0 Basophils % 0.7 Nucleated Red Blood 0.0 Cells % Immature Granulocytes # 0.020 Neutrophils # 4.0 Lymphocytes # 2.4 Monocytes # 0.5 Eosinophils # 0.2 Basophils # 0.1 Nucleated Red Blood 0.0 Cells # Sodium Level 140 Potassium Level 3.8 Chloride Level 105 Carbon Dioxide Level 25 Anion Gap 10 Blood Urea Nitrogen 14 Creatinine 0.78 Est Glomerular Filtrat > 60 Rate mL/min Glucose Level 165 Calcium Level 9.2 Medications Medication Current Medications IV Flush (NS 3 ml) 3 ml PER PROTOCOL IV ; Start 01/05/19 at 19:00 Ondansetron HCl (Zofran Inj) 4 mg Q6H PRN IV NAUSEA/VOMITING; Start 01/05/19 at 19:00 Acetaminophen (Tylenol Tab) 650 mg Q6H PRN PO .PAIN 1-3 OR TEMP; Start 01/05/19 at 19:00 Acetaminophen/ Hydrocodone Bitart ([place] (5/325)) 1 tab Q6H PRN PO .MOD PAIN 4- 6; Start 01/05/19 at 19:00 Morphine Sulfate (morphine) 2 mg Q4H PRN IV .SEVERE PAIN 7-10; Start 01/05/19 at 19:00 Docusate Sodium (Colace) 100 mg Q12H PRN PO .CONSTIPATION; Start 01/05/19 at 19:00 Magnesium Hydroxide (Milk Of Mag) 30 ml DAILY PRN PO .CONSTIPATION; Start 01/05/19 at 19:00 Famotidine (Pepcid) 20 mg DAILY PO Last administered on 01/07/19at 08:24; Admin Dose 20 MG; Start 01/05/19 at 19:00 Sodium Chloride 1,000 ml @ 75 mls/hr [id number] IV Last administered on 01/07/19at 06:18; Admin Dose 75 MLS/HR; Start 01/05/19 at 18:49 Lorazepam (Ativan) 0.5 mg Q6H PRN IV ANXIETY; Start 01/05/19 at 19:00 Albuterol/ Ipratropium (Duoneb) 3 ml Q4H RESP THERAPY PRN HHN SHORTNESS OF BREATH; Start 01/05/19 at 19:00 Hydralazine HCl (Apresoline) 10 mg Q6H PRN IV ELEVATED BLOOD PRESSURE; Start 01/05/19 at 19:00 Nitroglycerin (Nitroglycerin (Sl Tab) 0.4 Mg) 1 tab Q5M PRN SL ANGINA; Start 01/05/19 at 19:00 Nicotine (Nicoderm 21 Mg/ 24hr) 1 patch DAILY TRANSDERM Last administered on 01/07/19at 08:24; Admin Dose 1 PATCH; Start 01/06/19 at 09:00 Aspirin (Ecotrin) 325 mg DAILY PO Last administered on 01/07/19at 08:24; Admin Dose 325 MG; Start 01/06/19 at 09:00 Clopidogrel Bisulfate (plaVIX) 75 mg DAILY PO Last administered on 01/07/19at 08:23; Admin Dose 75 MG; Start 01/06/19 at 09:00 Miscellaneous Information 1 ea NOTE XX ; Start 01/06/19 at 01:30 Glucose (Glutose) 15 gm Q15M PRN PO DECREASED GLUCOSE; Start 01/06/19 at 01:30 Glucose (Glutose) 22.5 gm Q15M PRN PO DECREASED GLUCOSE; Start 01/06/19 at 01:30 Dextrose (D50w Syringe) 25 ml Q15M PRN IV DECREASED GLUCOSE; Start 01/06/19 at 01:30 Dextrose (D50w Syringe) 50 ml Q15M PRN IV DECREASED GLUCOSE; Start 01/06/19 at 01:30 Glucagon (Glucagen) 1 mg Q15M PRN IM DECREASED GLUCOSE; Start 01/06/19 at 01:30 Glucose (Glutose) 15 gm Q15M PRN BUCCAL DECREASED GLUCOSE; Start 01/06/19 at 01:30 Atorvastatin Calcium (Lipitor) 80 mg DAILY PO Last administered on 01/07/19at 08:23; Admin Dose 80 MG; Start 01/06/19 at 09:30 Insulin Aspart (Novolog Insulin Pen) (Adult SC Insulin - Mild Algorithm)... AC MEALS AND BEDTIME SC ; Start 01/07/19 at 17:30 TERESSA PEARSON Jan 07, 2019 10:12
[2019-01-07 11:08] VITALS: BP 148/80; PULSE 69; RESP 20
[2019-01-07] MEDS: ENALAPRIL 10 MG TAB PO SCH ×2 (12:31→21:39)
[2019-01-07 15:21] VITALS: BP 169/91; PULSE 70; RESP 20
[2019-01-07] MEDS: Insulin NOVOLOG SS MILD Algorithm (SS with meals and bedtime) SC SCH ×2 (17:16→21:00)
[2019-01-07] MEDS ORDERED: INSULIN ASPART [NOVOLOG] 3 ML PEN SC SCH ×2 (17:30)
[2019-01-07 20:04] VITALS: BP 159/100; PULSE 70; RESP 20
[2019-01-08 00:34] VITALS: BP 157/85; PULSE 70; RESP 20
[2019-01-08 03:47] VITALS: BP 162/83; PULSE 72; RESP 20
[2019-01-08 07:40] VITALS: BP 190/95; PULSE 68; RESP 20
[2019-01-08] MEDS: Insulin NOVOLOG SS MILD Algorithm (SS with meals and bedtime) SC SCH ×4 (07:40→21:00)
[2019-01-08] MEDS: ATORVASTATIN 80 MG TAB PO SCH (08:07)
[2019-01-08] MEDS: ASPIRIN (EC) 325 MG TAB PO SCH (08:07)
[2019-01-08] MEDS: CLOPIDOGREL 75 MG TAB PO SCH (08:07)
[2019-01-08] MEDS: FAMOTIDINE 20 MG TAB PO SCH (08:07)
[2019-01-08] MEDS: NICOTINE (21 MG/24 HR) PATCH TRANSDERM SCH (08:08)
[2019-01-08] MEDS: ENALAPRIL 10 MG TAB PO SCH ×2 (08:08→21:02)
--- NOTE | 2019-01-08 08:13 | CONS ---
Assessment/Plan Assessment/Plan Assessment/Plan (Recall) 63 M c/ known HTN and tobacco dependence, who presents for evaluation of left hemiparesis and dysarthria concerning for acute stroke. MRI brain confirms acute R pontine and L [employer]MER territory infarcts...which could in theory result from basilar artery thromboembolism.. CTA Head showed intracranial atherosclerosis....though without basliar artery involvement... TTE was unrevealing.. LDL 95; A1C >9%, UDS Neg P: AROLDO to further evaluate for possible cardioembolic source.. 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 Will follow clinically Consultation Date/Type/Reason Admit Date/Time Jan 05, 2019 at 17:43 Type of Consult Neurology Reason for Consultation left sided weakness Requesting Provider: TERESSA PEARSON Date/Time of Note DATE: 01/08/19 TIME: 08:12 24 HR Interval Summary Free Text/Dictation Continues acute care Exam/Review of Systems Exam Vitals Vital Signs Date Temp Pulse Resp B/P (MAP) Pulse Ox O2 O2 Flow FiO2 Time Delivery Rate 01/08/19 98.0 68 20 190/95 97 Room Air 07:40 (126) Intake and Output 01/07/19 01/07/19 01/08/19 1515:00 23:00 07:00 IntakeIntake Total 600 ml 900 ml OutputOutput Total 4 ml 100 ml BalanceBalance 596 ml 800 ml Results Result Diagram: 01/08/19 0533 01/08/19 0533 Results 24hrs Laboratory Tests Test 01/07/19 17:07 01/07/19 21:37 01/08/19 05:33 01/08/19 07:31 Bedside Glucose 177 147 155 White Blood Count 7.9 Red Blood Count 5.70 Hemoglobin 14.3 Hematocrit 43.1 Mean Corpuscular Volume 75.6 L Mean Corpuscular 25.1 L Hemoglobin Mean Corpuscular 33.2 Hemoglobin Concent Red Cell Distribution 14.1 Width Platelet Count 258 Mean Platelet Volume 11.3 H Immature Granulocytes % 0.400 Neutrophils % 57.2 Lymphocytes % 32.0 Monocytes % 6.5 Eosinophils % 3.4 Basophils % 0.5 Nucleated Red Blood 0.0 Cells % Immature Granulocytes # 0.030 Neutrophils # 4.5 Lymphocytes # 2.5 Monocytes # 0.5 Eosinophils # 0.3 Basophils # 0.0 Nucleated Red Blood 0.0 Cells # Sodium Level 142 Potassium Level 3.9 Chloride Level 106 Carbon Dioxide Level 24 Anion Gap 12 Blood Urea Nitrogen 17 Creatinine 0.77 Est Glomerular Filtrat > 60 Rate mL/min Glucose Level 178 Calcium Level 9.3 Phosphorus Level 4.2 Magnesium Level 1.8 Medications Medication Current Medications IV Flush (NS 3 ml) 3 ml PER PROTOCOL IV ; Start 01/05/19 at 19:00 Ondansetron HCl (Zofran Inj) 4 mg Q6H PRN IV NAUSEA/VOMITING; Start 01/05/19 at 19:00 Acetaminophen (Tylenol Tab) 650 mg Q6H PRN PO .PAIN 1-3 OR TEMP; Start 01/05/19 at 19:00 Acetaminophen/ Hydrocodone Bitart ([place] (5/325)) 1 tab Q6H PRN PO .MOD PAIN 4- 6; Start 01/05/19 at 19:00 Morphine Sulfate (morphine) 2 mg Q4H PRN IV .SEVERE PAIN 7-10; Start 01/05/19 at 19:00 Docusate Sodium (Colace) 100 mg Q12H PRN PO .CONSTIPATION; Start 01/05/19 at 19:00 Magnesium Hydroxide (Milk Of Mag) 30 ml DAILY PRN PO .CONSTIPATION; Start 01/05/19 at 19:00 Famotidine (Pepcid) 20 mg DAILY PO Last administered on 01/08/19at 08:07; Admin Dose 20 MG; Start 01/05/19 at 19:00 Sodium Chloride 1,000 ml @ 75 mls/hr [id number] IV Last administered on 01/07/19at 22:22; Admin Dose 75 MLS/HR; Start 01/05/19 at 18:49 Lorazepam (Ativan) 0.5 mg Q6H PRN IV ANXIETY; Start 01/05/19 at 19:00 Albuterol/ Ipratropium (Duoneb) 3 ml Q4H RESP THERAPY PRN HHN SHORTNESS OF BREATH; Start 01/05/19 at 19:00 Hydralazine HCl (Apresoline) 10 mg Q6H PRN IV ELEVATED BLOOD PRESSURE; Start 01/05/19 at 19:00 Nitroglycerin (Nitroglycerin (Sl Tab) 0.4 Mg) 1 tab Q5M PRN SL ANGINA; Start 01/05/19 at 19:00 Nicotine (Nicoderm 21 Mg/ 24hr) 1 patch DAILY TRANSDERM Last administered on 01/08/19 08:08; Admin Dose 1 PATCH; Start 01/06/19 at 09:00 Aspirin (Ecotrin) 325 mg DAILY PO Last administered on 01/08/19 08:07; Admin Dose 325 MG; Start 01/06/19 at 09:00 Clopidogrel Bisulfate (plaVIX) 75 mg DAILY PO Last administered on 01/08/19 08:07; Admin Dose 75 MG; Start 01/06/19 at 09:00 Miscellaneous Information 1 ea NOTE XX ; Start 01/06/19 at 01:30 Glucose (Glutose) 15 gm Q15M PRN PO DECREASED GLUCOSE; Start 01/06/19 at 01:30 Glucose (Glutose) 22.5 gm Q15M PRN PO DECREASED GLUCOSE; Start 01/06/19 at 01:30 Dextrose (D50w Syringe) 25 ml Q15M PRN IV DECREASED GLUCOSE; Start 01/06/19 at 01:30 Dextrose (D50w Syringe) 50 ml Q15M PRN IV DECREASED GLUCOSE; Start 01/06/19 at 01:30 Glucagon (Glucagen) 1 mg Q15M PRN IM DECREASED GLUCOSE; Start 01/06/19 at 01:30 Glucose (Glutose) 15 gm Q15M PRN BUCCAL DECREASED GLUCOSE; Start 01/06/19 at 01:30 Atorvastatin Calcium (Lipitor) 80 mg DAILY PO Last administered on 01/08/19 08:07; Admin Dose 80 MG; Start 01/06/19 at 09:30 Insulin Aspart (Novolog Insulin Pen) (Adult SC Insulin - Mild Algorithm)... AC MEALS AND BEDTIME SC Last administered on 01/08/19 07:40; Admin Dose 1 UNIT; Start 01/07/19 at 17:30 Enalapril Maleate (Vasotec) 10 mg BID PO Last administered on 01/08/19 08:08; Admin Dose 10 MG; Start 01/07/19 at 11:00 SANTIAGO HONEYCUTT Jan 08, 2019 08:13
[2019-01-08 11:19] VITALS: BP 193/98; PULSE 76; RESP 18
[2019-01-08] MEDS: SOD CHLORIDE 0.45% 1,000 ML IV SCH (13:02)
[2019-01-08 15:31] VITALS: BP 169/89; PULSE 69; RESP 18
--- NOTE | 2019-01-08 15:45 | PN ---
Date/Time of Note Date/Time of Note DATE: 01/08/19 TIME: 15:41 Assessment/Plan VTE Prophylaxis Risk score (from Ns)>0 risk: 3 SCD applied (from Nsg): Yes Pharmacological prophylaxis: other Lines/Catheters IV Catheter Type (from Nrs): Peripheral IV Assessment/Plan Hospital Course S: Patient had no acute events overnight, seen by neurology team yesterday. Waiting to be seen by cardiology team. O: VS- see below PE: Gen: lying in bed, No acute distress Head: Atraumatic Eyes: Normal Conjunctiva, PERRLA, EOMI, no nystagmus ENT: Normal External Ears, Nose and Mouth. Neck: Full range of motion. No meningismus. Resp: Clear to auscultation bilaterally Cardio: Regular rate and rhythm, no murmurs. 2+ distal pulses in all 4 extremities Abd: Soft, non tender, non distended. Normal bowel sounds Ext: No LE edema B/L Neuro: Awake and alert, no facial asymmetry, slightly slurred speech. Cranial nerves grossly intact. Strength and sensations intact in all 4 extremities. MRI brain: IMPRESSION: 1. 11 x 6 mm acute/recent infarct in the right estella, likely the etiology of patient's left lower extremity weakness. No evidence of hemorrhagic conversion. 2. 9 x 5 mm acute/infarct involving the left parietal/periatrial white matter. No evidence of hemorrhagic conversion. 3. Subtle increased signal on the diffusion weighted signal in the left anterior frontal lobe, which may be related to subacute infarct versus T2 shine through. 4. No intracranial hemorrhage, mass lesion or hydrocephalous. A/P: 63 M p/w: #Slurred speech left-sided weakness:MRI brain does show acute stroke as listed above. Neurology team on the case, patient with no current focal deficits however. -Monitor, follow-up neurology recognitions, waiting for cardiology team to evaluate the patient's for AROLDO as they want to rule out possible cardioembolic stroke for this particular stroke -Continue PT, OT, speech therapy -Continue aspirin and Plavix -Continue Lipitor 80 mg daily -Neurochecks every 4 hours and follow-up further recommendations from neurology consult #Smoking history: Counseled on cessation, nicotine patch # Diabetes: Sugars stable, A1c was 9.4 - continue ISS # HTN: In the high normal range -Continue enalapril twice daily, hydralazine IV every 6 hours as needed systolic rate of 160 Result Diagram: 01/08/19 0533 01/08/19 0533 Results 24hrs Laboratory Tests Test 01/07/19 17:07 01/07/19 21:37 01/08/19 05:33 01/08/19 07:31 Bedside Glucose 177 147 155 White Blood Count 7.9 Red Blood Count 5.70 Hemoglobin 14.3 Hematocrit 43.1 Mean Corpuscular Volume 75.6 L Mean Corpuscular 25.1 L Hemoglobin Mean Corpuscular 33.2 Hemoglobin Concent Red Cell Distribution 14.1 Width Platelet Count 258 Mean Platelet Volume 11.3 H Immature Granulocytes % 0.400 Neutrophils % 57.2 Lymphocytes % 32.0 Monocytes % 6.5 Eosinophils % 3.4 Basophils % 0.5 Nucleated Red Blood 0.0 Cells % Immature Granulocytes # 0.030 Neutrophils # 4.5 Lymphocytes # 2.5 Monocytes # 0.5 Eosinophils # 0.3 Basophils # 0.0 Nucleated Red Blood 0.0 Cells # Sodium Level 142 Potassium Level 3.9 Chloride Level 106 Carbon Dioxide Level 24 Anion Gap 12 Blood Urea Nitrogen 17 Creatinine 0.77 Est Glomerular Filtrat > 60 Rate mL/min Glucose Level 178 Calcium Level 9.3 Phosphorus Level 4.2 Magnesium Level 1.8 Test 01/08/19 11:42 Bedside Glucose 177 Exam/Review of Systems Exam Vitals Vital Signs Date Temp Pulse Resp B/P (MAP) Pulse Ox O2 O2 Flow FiO2 Time Delivery Rate 01/08/19 97.7 69 18 169/89 98 Room Air 15:31 (115) Intake and Output 01/07/19 01/07/19 01/08/19 1515:00 23:00 07:00 IntakeIntake Total 600 ml 900 ml OutputOutput Total 4 ml 100 ml BalanceBalance 596 ml 800 ml Results Results 24hrs Laboratory Tests Test 01/07/19 17:07 01/07/19 21:37 01/08/19 05:33 01/08/19 07:31 Bedside Glucose 177 147 155 White Blood Count 7.9 Red Blood Count 5.70 Hemoglobin 14.3 Hematocrit 43.1 Mean Corpuscular Volume 75.6 L Mean Corpuscular 25.1 L Hemoglobin Mean Corpuscular 33.2 Hemoglobin Concent Red Cell Distribution 14.1 Width Platelet Count 258 Mean Platelet Volume 11.3 H Immature Granulocytes % 0.400 Neutrophils % 57.2 Lymphocytes % 32.0 Monocytes % 6.5 Eosinophils % 3.4 Basophils % 0.5 Nucleated Red Blood 0.0 Cells % Immature Granulocytes # 0.030 Neutrophils # 4.5 Lymphocytes # 2.5 Monocytes # 0.5 Eosinophils # 0.3 Basophils # 0.0 Nucleated Red Blood 0.0 Cells # Sodium Level 142 Potassium Level 3.9 Chloride Level 106 Carbon Dioxide Level 24 Anion Gap 12 Blood Urea Nitrogen 17 Creatinine 0.77 Est Glomerular Filtrat > 60 Rate mL/min Glucose Level 178 Calcium Level 9.3 Phosphorus Level 4.2 Magnesium Level 1.8 Test 01/08/19 11:42 Bedside Glucose 177 Medications Medication Current Medications IV Flush (NS 3 ml) 3 ml PER PROTOCOL IV ; Start 01/05/19 at 19:00 Ondansetron HCl (Zofran Inj) 4 mg Q6H PRN IV NAUSEA/VOMITING; Start 01/05/19 at 19:00 Acetaminophen (Tylenol Tab) 650 mg Q6H PRN PO .PAIN 1-3 OR TEMP; Start 01/05/19 at 19:00 Acetaminophen/ Hydrocodone Bitart ([place] (5/325)) 1 tab Q6H PRN PO .MOD PAIN 4- 6; Start 01/05/19 at 19:00 Morphine Sulfate (morphine) 2 mg Q4H PRN IV .SEVERE PAIN 7-10; Start 01/05/19 at 19:00 Docusate Sodium (Colace) 100 mg Q12H PRN PO .CONSTIPATION; Start 01/05/19 at 19:00 Magnesium Hydroxide (Milk Of Mag) 30 ml DAILY PRN PO .CONSTIPATION; Start 01/05/19 at 19:00 Famotidine (Pepcid) 20 mg DAILY PO Last administered on 01/08/19at 08:07; Admin Dose 20 MG; Start 01/05/19 at 19:00 Sodium Chloride 1,000 ml @ 75 mls/hr [id number] IV Last administered on 01/08/19at 13:02; Admin Dose 75 MLS/HR; Start 01/05/19 at 18:49 Lorazepam (Ativan) 0.5 mg Q6H PRN IV ANXIETY; Start 01/05/19 at 19:00 Albuterol/ Ipratropium (Duoneb) 3 ml Q4H RESP THERAPY PRN HHN SHORTNESS OF BREATH; Start 01/05/19 at 19:00 Hydralazine HCl (Apresoline) 10 mg Q6H PRN IV ELEVATED BLOOD PRESSURE; Start 01/05/19 at 19:00 Nitroglycerin (Nitroglycerin (Sl Tab) 0.4 Mg) 1 tab Q5M PRN SL ANGINA; Start 01/05/19 at 19:00 Nicotine (Nicoderm 21 Mg/ 24hr) 1 patch DAILY TRANSDERM Last administered on 01/08/19at 08:08; Admin Dose 1 PATCH; Start 01/06/19 at 09:00 Aspirin (Ecotrin) 325 mg DAILY PO Last administered on 01/08/19at 08:07; Admin Dose 325 MG; Start 01/06/19 at 09:00 Clopidogrel Bisulfate (plaVIX) 75 mg DAILY PO Last administered on 01/08/19at 08:07; Admin Dose 75 MG; Start 01/06/19 at 09:00 Miscellaneous Information 1 ea NOTE XX ; Start 01/06/19 at 01:30 Glucose (Glutose) 15 gm Q15M PRN PO DECREASED GLUCOSE; Start 01/06/19 at 01:30 Glucose (Glutose) 22.5 gm Q15M PRN PO DECREASED GLUCOSE; Start 01/06/19 at 01:30 Dextrose (D50w Syringe) 25 ml Q15M PRN IV DECREASED GLUCOSE; Start 01/06/19 at 01:30 Dextrose (D50w Syringe) 50 ml Q15M PRN IV DECREASED GLUCOSE; Start 01/06/19 at 01:30 Glucagon (Glucagen) 1 mg Q15M PRN IM DECREASED GLUCOSE; Start 01/06/19 at 01:30 Glucose (Glutose) 15 gm Q15M PRN BUCCAL DECREASED GLUCOSE; Start 01/06/19 at 01:30 Atorvastatin Calcium (Lipitor) 80 mg DAILY PO Last administered on 01/08/19at 08:07; Admin Dose 80 MG; Start 01/06/19 at 09:30 Insulin Aspart (Novolog Insulin Pen) (Adult SC Insulin - Mild Algorithm)... AC MEALS AND BEDTIME SC Last administered on 01/08/19at 11:51; Admin Dose 1 UNIT; Start 01/07/19 at 17:30 Enalapril Maleate (Vasotec) 10 mg BID PO Last administered on 01/08/19at 08:08; Admin Dose 10 MG; Start 01/07/19 at 11:00 TERESSA PEARSON Jan 08, 2019 15:45
[2019-01-08 19:30] VITALS: BP 189/102; PULSE 74; RESP 18
[2019-01-09 00:17] VITALS: BP 158/87; PULSE 72; RESP 18
[2019-01-09 04:07] VITALS: BP 165/88; PULSE 77; RESP 18
[2019-01-09 07:32] VITALS: BP 141/87; PULSE 67; RESP 18
[2019-01-09] MEDS: Insulin NOVOLOG SS MILD Algorithm (SS with meals and bedtime) SC SCH ×4 (07:45→21:00)
[2019-01-09] MEDS: NICOTINE (21 MG/24 HR) PATCH TRANSDERM SCH (09:00)
[2019-01-09] MEDS: ATORVASTATIN 80 MG TAB PO SCH (09:16)
[2019-01-09] MEDS: CLOPIDOGREL 75 MG TAB PO SCH (09:16)
[2019-01-09] MEDS: ASPIRIN (EC) 325 MG TAB PO SCH (09:16)
[2019-01-09] MEDS: ENALAPRIL 10 MG TAB PO SCH ×2 (09:16→21:12)
[2019-01-09] MEDS: FAMOTIDINE 20 MG TAB PO SCH (09:16)
--- NOTE | 2019-01-09 11:34 | CONS ---
Assessment/Plan Assessment/Plan Assessment/Plan (Recall) 63 M c/ known HTN and tobacco dependence, who presents for evaluation of left hemiparesis and dysarthria concerning for acute stroke. 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 CTA Head showed intracranial atherosclerosis....though without basliar artery involvement... TTE was unrevealing.. LDL 95; A1C >9%, UDS Neg P: AROLDO to further evaluate for possible cardioembolic source.. 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 Will follow clinically Consultation Date/Type/Reason Admit Date/Time Jan 05, 2019 at 17:43 Type of Consult Neurology Reason for Consultation left sided weakness Requesting Provider: TERESSA PEARSON Date/Time of Note DATE: 01/09/19 TIME: 11:34 24 HR Interval Summary Free Text/Dictation Continues acute care Exam/Review of Systems Exam Vitals Vital Signs Date Temp Pulse Resp B/P (MAP) Pulse Ox O2 O2 Flow FiO2 Time Delivery Rate 01/09/19 98.2 67 18 141/87 97 Room Air 07:32 (105) Intake and Output 01/08/19 01/08/19 01/09/19 1414:59 22:59 06:59 IntakeIntake Total 720 ml 1600 ml 500 ml OutputOutput Total 2 ml BalanceBalance 718 ml 1600 ml 500 ml Results Result Diagram: 01/09/19 0529 01/09/19 0529 Results 24hrs Laboratory Tests Test 01/08/19 11:42 01/08/19 17:17 01/08/19 20:50 01/09/19 05:29 Bedside Glucose 177 128 149 White Blood Count 8.1 Red Blood Count 5.38 Hemoglobin 13.7 L Hematocrit 41.0 L Mean Corpuscular Volume 76.2 L Mean Corpuscular 25.5 L Hemoglobin Mean Corpuscular 33.4 Hemoglobin Concent Red Cell Distribution 13.7 Width Platelet Count 237 Mean Platelet Volume 10.9 H Immature Granulocytes % 0.400 Neutrophils % 56.6 Lymphocytes % 32.1 Monocytes % 7.3 Eosinophils % 3.1 Basophils % 0.5 Nucleated Red Blood 0.0 Cells % Immature Granulocytes # 0.030 Neutrophils # 4.6 Lymphocytes # 2.6 Monocytes # 0.6 Eosinophils # 0.3 Basophils # 0.0 Nucleated Red Blood 0.0 Cells # Sodium Level 141 Potassium Level 3.8 Chloride Level 104 Carbon Dioxide Level 26 Anion Gap 11 Blood Urea Nitrogen 20 Creatinine 0.83 Est Glomerular Filtrat > 60 Rate mL/min Glucose Level 169 Calcium Level 9.2 Test 01/09/19 07:40 Bedside Glucose 156 Medications Medication Current Medications IV Flush (NS 3 ml) 3 ml PER PROTOCOL IV ; Start 01/05/19 at 19:00 Ondansetron HCl (Zofran Inj) 4 mg Q6H PRN IV NAUSEA/VOMITING; Start 01/05/19 at 19:00 Acetaminophen (Tylenol Tab) 650 mg Q6H PRN PO .PAIN 1-3 OR TEMP; Start 01/05/19 at 19:00 Acetaminophen/ Hydrocodone Bitart ([place] (5/325)) 1 tab Q6H PRN PO .MOD PAIN 4- 6; Start 01/05/19 at 19:00 Morphine Sulfate (morphine) 2 mg Q4H PRN IV .SEVERE PAIN 7-10; Start 01/05/19 at 19:00 Docusate Sodium (Colace) 100 mg Q12H PRN PO .CONSTIPATION; Start 01/05/19 at 19:00 Magnesium Hydroxide (Milk Of Mag) 30 ml DAILY PRN PO .CONSTIPATION; Start 01/05/19 at 19:00 Famotidine (Pepcid) 20 mg DAILY PO Last administered on 01/09/19at 09:16; Admin Dose 20 MG; Start 01/05/19 at 19:00 Lorazepam (Ativan) 0.5 mg Q6H PRN IV ANXIETY; Start 01/05/19 at 19:00 Albuterol/ Ipratropium (Duoneb) 3 ml Q4H RESP THERAPY PRN HHN SHORTNESS OF BREATH; Start 01/05/19 at 19:00 Hydralazine HCl (Apresoline) 10 mg Q6H PRN IV ELEVATED BLOOD PRESSURE; Start 01/05/19 at 19:00 Nitroglycerin (Nitroglycerin (Sl Tab) 0.4 Mg) 1 tab Q5M PRN SL ANGINA; Start 01/05/19 at 19:00 Nicotine (Nicoderm 21 Mg/ 24hr) 1 patch DAILY TRANSDERM Last administered on 01/08/19 08:08; Admin Dose 1 PATCH; Start 01/06/19 at 09:00 Aspirin (Ecotrin) 325 mg DAILY PO Last administered on 01/09/19 09:16; Admin Dose 325 MG; Start 01/06/19 at 09:00 Clopidogrel Bisulfate (plaVIX) 75 mg DAILY PO Last administered on 01/09/19 09:16; Admin Dose 75 MG; Start 01/06/19 at 09:00 Miscellaneous Information 1 ea NOTE XX ; Start 01/06/19 at 01:30 Glucose (Glutose) 15 gm Q15M PRN PO DECREASED GLUCOSE; Start 01/06/19 at 01:30 Glucose (Glutose) 22.5 gm Q15M PRN PO DECREASED GLUCOSE; Start 01/06/19 at 01:30 Dextrose (D50w Syringe) 25 ml Q15M PRN IV DECREASED GLUCOSE; Start 01/06/19 at 01:30 Dextrose (D50w Syringe) 50 ml Q15M PRN IV DECREASED GLUCOSE; Start 01/06/19 at 01:30 Glucagon (Glucagen) 1 mg Q15M PRN IM DECREASED GLUCOSE; Start 01/06/19 at 01:30 Glucose (Glutose) 15 gm Q15M PRN BUCCAL DECREASED GLUCOSE; Start 01/06/19 at 01:30 Atorvastatin Calcium (Lipitor) 80 mg DAILY PO Last administered on 01/09/19 09:16; Admin Dose 80 MG; Start 01/06/19 at 09:30 Insulin Aspart (Novolog Insulin Pen) (Adult SC Insulin - Mild Algorithm)... AC MEALS AND BEDTIME SC Last administered on 01/09/19 07:45; Admin Dose 1 UNIT; Start 01/07/19 at 17:30 Enalapril Maleate (Vasotec) 10 mg BID PO Last administered on 01/09/19 09:16; Admin Dose 10 MG; Start 01/07/19 at 11:00 SANTIAGO HONEYCUTT Jan 09, 2019 11:34
[2019-01-09 11:52] VITALS: BP 172/88; PULSE 69; RESP 16
[2019-01-09 15:28] VITALS: BP 154/76; PULSE 70; RESP 20
--- NOTE | 2019-01-09 17:52 | PN ---
Date/Time of Note Date/Time of Note DATE: 01/09/19 TIME: 17:50 Assessment/Plan VTE Prophylaxis Risk score (from Ns)>0 risk: 3 SCD applied (from Ns): Yes Pharmacological prophylaxis: NA/contraindicated Pharm contraindication: low risk/ambulating Lines/Catheters IV C[facility]ter Type (from [facility]): Saline Lock Assessment/Plan Assessment/Plan 63yo man, smoker presents with new stroke. #Slurred speech left-sided weakness:MRI brain does show acute stroke as listed above. Neurology team on the case, patient with no current focal deficits however. -Monitor, follow-up neurology recognitions, waiting for cardiology team to evaluate the patient's for AROLDO as they want to rule out possible cardioembolic stroke for this particular stroke -Continue PT, OT, speech therapy -Continue aspirin and Plavix -Continue Lipitor 80 mg daily -Neurochecks every 4 hours and follow-up further recommendations from neurology consult #Smoking history: Counseled on cessation, nicotine patch # Diabetes: Sugars stable, A1c was 9.4 - continue ISS # HTN: In the high normal range -Continue enalapril twice daily, hydralazine IV every 6 hours as needed systolic rate of 160 Result Diagram: 01/09/19 0501/09/19 05 Subjective 24 Hr Interval Summary Free Text/Dictation No acute overnight events. Patient feels well. Reports some R leg unsteadiness, like it is about to buckle when he stands. Otherwise symptoms have resolved. Exam/Review of Systems Exam Vitals Vital Signs Date Temp Pulse Resp B/P (MAP) Pulse Ox O2 O2 Flow FiO2 Time Delivery Rate 01/09/19 98.2 70 20 154/76 94 Room Air 15:28 (102) Intake and Output 01/08/19 01/08/19 01/09/19 1515:00 23:00 07:00 IntakeIntake Total 720 ml 1600 ml 500 ml OutputOutput Total 2 ml BalanceBalance 718 ml 1600 ml 500 ml Exam Gen: Well appearing man lying in bed. Head: Atraumatic Eyes: Normal Conjunctiva, PERRLA, EOMI, no nystagmus ENT: Normal External Ears, Nose and Mouth. Neck: Full range of motion. No meningismus. Resp: Clear to auscultation bilaterally Cardio: Regular rate and rhythm, no murmurs. 2+ distal pulses in all 4 extremities Abd: Soft, non tender, non distended. Normal bowel sounds Ext: No LE edema B/L Neuro: 5/5 strength bilateral legs all muscle groups. Results Results 24hrs Laboratory Tests Test 01/08/19 20:50 01/09/19 05:29 01/09/19 07:40 01/09/19 11:49 Bedside Glucose 149 156 162 White Blood Count 8.1 Red Blood Count 5.38 Hemoglobin 13.7 L Hematocrit 41.0 L Mean Corpuscular Volume 76.2 L Mean Corpuscular 25.5 L Hemoglobin Mean Corpuscular 33.4 Hemoglobin Concent Red Cell Distribution 13.7 Width Platelet Count 237 Mean Platelet Volume 10.9 H Immature Granulocytes % 0.400 Neutrophils % 56.6 Lymphocytes % 32.1 Monocytes % 7.3 Eosinophils % 3.1 Basophils % 0.5 Nucleated Red Blood 0.0 Cells % Immature Granulocytes # 0.030 Neutrophils # 4.6 Lymphocytes # 2.6 Monocytes # 0.6 Eosinophils # 0.3 Basophils # 0.0 Nucleated Red Blood 0.0 Cells # Sodium Level 141 Potassium Level 3.8 Chloride Level 104 Carbon Dioxide Level 26 Anion Gap 11 Blood Urea Nitrogen 20 Creatinine 0.83 Est Glomerular Filtrat > 60 Rate mL/min Glucose Level 169 Calcium Level 9.2 Test 01/09/19 17:03 Bedside Glucose 197 Medications Medication Current Medications IV Flush (NS 3 ml) 3 ml PER PROTOCOL IV ; Start 01/05/19 at 19:00 Ondansetron HCl (Zofran Inj) 4 mg Q6H PRN IV NAUSEA/VOMITING; Start 01/05/19 at 19:00 Acetaminophen (Tylenol Tab) 650 mg Q6H PRN PO .PAIN 1-3 OR TEMP; Start 01/05/19 at 19:00 Acetaminophen/ Hydrocodone Bitart ([place] (5/325)) 1 tab Q6H PRN PO .MOD PAIN 4- 6; Start 01/05/19 at 19:00 Morphine Sulfate (morphine) 2 mg Q4H PRN IV .SEVERE PAIN 7-10; Start 01/05/19 at 19:00 Docusate Sodium (Colace) 100 mg Q12H PRN PO .CONSTIPATION; Start 01/05/19 at 19:00 Magnesium Hydroxide (Milk Of Mag) 30 ml DAILY PRN PO .CONSTIPATION; Start 01/05/19 at 19:00 Famotidine (Pepcid) 20 mg DAILY PO Last administered on 01/09/19 09:16; Admin Dose 20 MG; Start 01/05/19 at 19:00 Lorazepam (Ativan) 0.5 mg Q6H PRN IV ANXIETY; Start 01/05/19 at 19:00 Albuterol/ Ipratropium (Duoneb) 3 ml Q4H RESP THERAPY PRN HHN SHORTNESS OF BREATH; Start 01/05/19 at 19:00 Hydralazine HCl (Apresoline) 10 mg Q6H PRN IV ELEVATED BLOOD PRESSURE Last administered on 01/09/19at 12:02; Admin Dose 10 MG; Start 01/05/19 at 19:00 Nitroglycerin (Nitroglycerin (Sl Tab) 0.4 Mg) 1 tab Q5M PRN SL ANGINA; Start 01/05/19 at 19:00 Nicotine (Nicoderm 21 Mg/ 24hr) 1 patch DAILY TRANSDERM Last administered on 01/08/19at 08:08; Admin Dose 1 PATCH; Start 01/06/19 at 09:00 Aspirin (Ecotrin) 325 mg DAILY PO Last administered on 01/09/19 09:16; Admin Dose 325 MG; Start 01/06/19 at 09:00 Clopidogrel Bisulfate (plaVIX) 75 mg DAILY PO Last administered on 01/09/19 09:16; Admin Dose 75 MG; Start 01/06/19 at 09:00 Miscellaneous Information 1 ea NOTE XX ; Start 01/06/19 at 01:30 Glucose (Glutose) 15 gm Q15M PRN PO DECREASED GLUCOSE; Start 01/06/19 at 01:30 Glucose (Glutose) 22.5 gm Q15M PRN PO DECREASED GLUCOSE; Start 01/06/19 at 01:30 Dextrose (D50w Syringe) 25 ml Q15M PRN IV DECREASED GLUCOSE; Start 01/06/19 at 01:30 Dextrose (D50w Syringe) 50 ml Q15M PRN IV DECREASED GLUCOSE; Start 01/06/19 at 01:30 Glucagon (Glucagen) 1 mg Q15M PRN IM DECREASED GLUCOSE; Start 01/06/19 at 01:30 Glucose (Glutose) 15 gm Q15M PRN BUCCAL DECREASED GLUCOSE; Start 01/06/19 at 01:30 Atorvastatin Calcium (Lipitor) 80 mg DAILY PO Last administered on 01/09/19 09:16; Admin Dose 80 MG; Start 01/06/19 at 09:30 Insulin Aspart (Novolog Insulin Pen) (Adult SC Insulin - Mild Algorithm)... AC MEALS AND BEDTIME SC Last administered on 01/09/19 17:09; Admin Dose 2 UNIT; Start 01/07/19 at 17:30 Enalapril Maleate (Vasotec) 10 mg BID PO Last administered on 01/09/19 09:16; Admin Dose 10 MG; Start 01/07/19 at 11:00 SEBAS SCHNEIDER MD Jan 09, 2019 17:52
[2019-01-09 20:06] VITALS: BP 154/88; PULSE 82; RESP 20
[2019-01-10] VITALS (7 sets, daily range): BP systolic 125–159; BP diastolic 64–84; PULSE 61–75; RESP 16–20
[2019-01-10] MEDS: Insulin NOVOLOG SS MILD Algorithm (SS with meals and bedtime) SC SCH ×4 (07:00→21:00)
[2019-01-10] MEDS: CLOPIDOGREL 75 MG TAB PO SCH (08:05)
[2019-01-10] MEDS: FAMOTIDINE 20 MG TAB PO SCH (08:05)
[2019-01-10] MEDS: ASPIRIN (EC) 325 MG TAB PO SCH (08:05)
[2019-01-10] MEDS: ATORVASTATIN 80 MG TAB PO SCH (08:05)
[2019-01-10] MEDS: NICOTINE (21 MG/24 HR) PATCH TRANSDERM SCH (08:05)
[2019-01-10] MEDS: ENALAPRIL 10 MG TAB PO SCH ×2 (08:05→21:08)
--- NOTE | 2019-01-10 09:35 | CONS ---
Assessment/Plan Assessment/Plan Assessment/Plan (Recall) 63 M c/ known HTN and tobacco dependence, who presents for evaluation of left hemiparesis and dysarthria concerning for acute stroke. 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 CTA Head showed intracranial atherosclerosis....though without basliar artery involvement... TTE was unrevealing.. LDL 95; A1C >9%, UDS Neg P: Await AROLDO to further evaluate for possible cardioembolic source.. 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 Will follow clinically Consultation Date/Type/Reason Admit Date/Time Jan 05, 2019 at 17:43 Type of Consult Neurology Reason for Consultation left sided weakness Requesting Provider: TERESSA PEARSON Date/Time of Note DATE: 01/10/19 TIME: 09:35 24 HR Interval Summary Free Text/Dictation Awaits AROLDO Exam/Review of Systems Exam Vitals Vital Signs Date Temp Pulse Resp B/P (MAP) Pulse Ox O2 O2 Flow FiO2 Time Delivery Rate 01/10/19 97.8 61 17 138/81 98 07:10 (100) 01/09/19 Room Air 15:28 Intake and Output 01/09/19 01/09/19 01/10/19 1515:00 23:00 07:00 IntakeIntake Total 800 ml 480 ml 400 ml BalanceBalance 800 ml 480 ml 400 ml Results Result Diagram: 01/10/19 0523 01/10/19 0523 Results 24hrs Laboratory Tests Test 01/09/19 11:49 01/09/19 17:03 01/09/19 21:11 01/10/19 05:23 Bedside Glucose 162 197 165 White Blood Count 8.6 Red Blood Count 5.68 Hemoglobin 14.3 Hematocrit 43.1 Mean Corpuscular Volume 75.9 L Mean Corpuscular 25.2 L Hemoglobin Mean Corpuscular 33.2 Hemoglobin Concent Red Cell Distribution 14.2 Width Platelet Count 257 Mean Platelet Volume 11.4 H Immature Granulocytes % 0.300 Neutrophils % 59.0 Lymphocytes % 30.1 Monocytes % 6.7 Eosinophils % 3.3 Basophils % 0.6 Nucleated Red Blood 0.0 Cells % Immature Granulocytes # 0.030 Neutrophils # 5.1 Lymphocytes # 2.6 Monocytes # 0.6 Eosinophils # 0.3 Basophils # 0.1 Nucleated Red Blood 0.0 Cells # Sodium Level 141 Potassium Level 4.0 Chloride Level 104 Carbon Dioxide Level 28 Anion Gap 9 Blood Urea Nitrogen 19 Creatinine 0.87 Est Glomerular Filtrat > 60 Rate mL/min Glucose Level 142 Calcium Level 9.2 Test 01/10/19 07:52 Bedside Glucose 141 Medications Medication Current Medications IV Flush (NS 3 ml) 3 ml PER PROTOCOL IV ; Start 01/05/19 at 19:00 Ondansetron HCl (Zofran Inj) 4 mg Q6H PRN IV NAUSEA/VOMITING; Start 01/05/19 at 19:00 Acetaminophen (Tylenol Tab) 650 mg Q6H PRN PO .PAIN 1-3 OR TEMP; Start 01/05/19 at 19:00 Acetaminophen/ Hydrocodone Bitart ([place] (5/325)) 1 tab Q6H PRN PO .MOD PAIN 4- 6; Start 01/05/19 at 19:00 Morphine Sulfate (morphine) 2 mg Q4H PRN IV .SEVERE PAIN 7-10; Start 01/05/19 at 19:00 Docusate Sodium (Colace) 100 mg Q12H PRN PO .CONSTIPATION; Start 01/05/19 at 19:00 Magnesium Hydroxide (Milk Of Mag) 30 ml DAILY PRN PO .CONSTIPATION; Start 01/05/19 at 19:00 Famotidine (Pepcid) 20 mg DAILY PO Last administered on 01/10/19at 08:05; Admin Dose 20 MG; Start 01/05/19 at 19:00 Lorazepam (Ativan) 0.5 mg Q6H PRN IV ANXIETY; Start 01/05/19 at 19:00 Albuterol/ Ipratropium (Duoneb) 3 ml Q4H RESP THERAPY PRN HHN SHORTNESS OF BREATH; Start 01/05/19 at 19:00 Hydralazine HCl (Apresoline) 10 mg Q6H PRN IV ELEVATED BLOOD PRESSURE Last administered on 01/09/19at 12:02; Admin Dose 10 MG; Start 01/05/19 at 19:00 Nitroglycerin (Nitroglycerin (Sl Tab) 0.4 Mg) 1 tab Q5M PRN SL ANGINA; Start 01/05/19 at 19:00 Nicotine (Nicoderm 21 Mg/ 24hr) 1 patch DAILY TRANSDERM Last administered on 01/10/19 08:05; Admin Dose 1 PATCH; Start 01/06/19 at 09:00 Aspirin (Ecotrin) 325 mg DAILY PO Last administered on 01/10/19 08:05; Admin Do se 325 MG; Start 01/06/19 at 09:00 Clopidogrel Bisulfate (plaVIX) 75 mg DAILY PO Last administered on 01/10/19 08:05; Admin Dose 75 MG; Start 01/06/19 at 09:00 Miscellaneous Information 1 ea NOTE XX ; Start 01/06/19 at 01:30 Glucose (Glutose) 15 gm Q15M PRN PO DECREASED GLUCOSE; Start 01/06/19 at 01:30 Glucose (Glutose) 22.5 gm Q15M PRN PO DECREASED GLUCOSE; Start 01/06/19 at 01:30 Dextrose (D50w Syringe) 25 ml Q15M PRN IV DECREASED GLUCOSE; Start 01/06/19 at 01:30 Dextrose (D50w Syringe) 50 ml Q15M PRN IV DECREASED GLUCOSE; Start 01/06/19 at 01:30 Glucagon (Glucagen) 1 mg Q15M PRN IM DECREASED GLUCOSE; Start 01/06/19 at 01:30 Glucose (Glutose) 15 gm Q15M PRN BUCCAL DECREASED GLUCOSE; Start 01/06/19 at 01:30 Atorvastatin Calcium (Lipitor) 80 mg DAILY PO Last administered on 01/10/19 08:05; Admin Dose 80 MG; Start 01/06/19 at 09:30 Insulin Aspart (Novolog Insulin Pen) (Adult SC Insulin - Mild Algorithm)... AC MEALS AND BEDTIME SC Last administered on 01/09/19 17:09; Admin Dose 2 UNIT; Start 01/07/19 at 17:30 Enalapril Maleate (Vasotec) 10 mg BID PO Last administered on 01/10/19 08:05; Admin Dose 10 MG; Start 01/07/19 at 11:00 SANTIAGO HONEYCUTT Jan 10, 2019 09:35
--- NOTE | 2019-01-10 10:48 | PN ---
Date/Time of Note Date/Time of Note DATE: 01/10/19 TIME: 10:46 Assessment/Plan VTE Prophylaxis Risk score (from Ns)>0 risk: 2 SCD applied (from Ns): Yes Pharmacological prophylaxis: NA/contraindicated Pharm contraindication: low risk/ambulating Lines/Catheters [facility] Saline Lock Assessment/Plan Assessment/Plan 63yo man, smoker presents with new stroke. #Slurred speech left-sided weakness: - MRI brain does show acute stroke as listed above. Neurology team on the case. - Symptoms on presentation now resolved. Only with mild deviation towards the left when walking; and the sensation of instability of the left leg. - Plan for AROLDO tomorrow by Dr. Burroughs or Dr. Sierra to rule out atrial appendage clot. -Continue PT, OT, speech therapy -Continue aspirin and Plavix -Continue Lipitor 80 mg daily #Smoking history: Counseled on cessation, nicotine patch # Diabetes: Sugars stable, A1c was 9.4 - continue ISS # HTN: In the high normal range -Continue enalapril twice daily, hydralazine IV every 6 hours as needed systolic rate of 160 Result Diagram: 01/10/1952201/10/19522 Subjective 24 Hr Interval Summary Free Text/Dictation Patient is ambulating with physical therapy without using walker or other assistive device. He does tend to sway towards the left. Exam/Review of Systems Exam Vitals Vital Signs Date Temp Pulse Resp B/P (MAP) Pulse Ox O2 O2 Flow FiO2 Time Delivery Rate 01/10/19 97.8 61 17 138/81 98 07:10 (100) 01/09/19 Room Air 15:28 Intake and Output 01/09/19 01/09/19 01/10/19 1515:00 23:00 07:00 IntakeIntake Total 800 ml 480 ml 400 ml BalanceBalance 800 ml 480 ml 400 ml Exam Gen: Well appearing man lying in bed. Head: Atraumatic Eyes: Normal Conjunctiva, PERRLA, EOMI, no nystagmus ENT: Normal External Ears, Nose and Mouth. Neck: Full range of motion. No meningismus. Resp: Clear to auscultation bilaterally Cardio: Regular rate and rhythm, no murmurs. 2+ distal pulses in all 4 extremities Abd: Soft, non tender, non distended. Normal bowel sounds Ext: No LE edema B/L Neuro: 5/5 strength bilateral legs all muscle groups. Results Results 24hrs Laboratory Tests Test 01/09/19 11:49 01/09/19 17:03 01/09/19 21:11 01/10/19 05:23 Bedside Glucose 162 197 165 White Blood Count 8.6 Red Blood Count 5.68 Hemoglobin 14.3 Hematocrit 43.1 Mean Corpuscular Volume 75.9 L Mean Corpuscular 25.2 L Hemoglobin Mean Corpuscular 33.2 Hemoglobin Concent Red Cell Distribution 14.2 Width Platelet Count 257 Mean Platelet Volume 11.4 H Immature Granulocytes % 0.300 Neutrophils % 59.0 Lymphocytes % 30.1 Monocytes % 6.7 Eosinophils % 3.3 Basophils % 0.6 Nucleated Red Blood 0.0 Cells % Immature Granulocytes # 0.030 Neutrophils # 5.1 Lymphocytes # 2.6 Monocytes # 0.6 Eosinophils # 0.3 Basophils # 0.1 Nucleated Red Blood 0.0 Cells # Sodium Level 141 Potassium Level 4.0 Chloride Level 104 Carbon Dioxide Level 28 Anion Gap 9 Blood Urea Nitrogen 19 Creatinine 0.87 Est Glomerular Filtrat > 60 Rate mL/min Glucose Level 142 Calcium Level 9.2 Test 01/10/19 07:52 Bedside Glucose 141 Medications Medication Current Medications IV Flush (NS 3 ml) 3 ml PER PROTOCOL IV ; Start 01/05/19 at 19:00 Ondansetron HCl (Zofran Inj) 4 mg Q6H PRN IV NAUSEA/VOMITING; Start 01/05/19 at 19:00 Acetaminophen (Tylenol Tab) 650 mg Q6H PRN PO .PAIN 1-3 OR TEMP; Start 01/05/19 at 19:00 Acetaminophen/ Hydrocodone Bitart ([place] (5/325)) 1 tab Q6H PRN PO .MOD PAIN 4- 6; Start 01/05/19 at 19:00 Morphine Sulfate (morphine) 2 mg Q4H PRN IV .SEVERE PAIN 7-10; Start 01/05/19 at 19:00 Docusate Sodium (Colace) 100 mg Q12H PRN PO .CONSTIPATION; Start 01/05/19 at 19:00 Magnesium Hydroxide (Milk Of Mag) 30 ml DAILY PRN PO .CONSTIPATION; Start 01/05/19 at 19:00 Famotidine (Pepcid) 20 mg DAILY PO Last administered on 01/10/19at 08:05; Admin Dose 20 MG; Start 01/05/19 at 19:00 Lorazepam (Ativan) 0.5 mg Q6H PRN IV ANXIETY; Start 01/05/19 at 19:00 Albuterol/ Ipratropium (Duoneb) 3 ml Q4H RESP THERAPY PRN HHN SHORTNESS OF BREATH; Start 01/05/19 at 19:00 Hydralazine HCl (Apresoline) 10 mg Q6H PRN IV ELEVATED BLOOD PRESSURE Last administered on 01/09/19at 12:02; Admin Dose 10 MG; Start 01/05/19 at 19:00 Nitroglycerin (Nitroglycerin (Sl Tab) 0.4 Mg) 1 tab Q5M PRN SL ANGINA; Start 01/05/19 at 19:00 Nicotine (Nicoderm 21 Mg/ 24hr) 1 patch DAILY TRANSDERM Last administered on 01/10/19at 08:05; Admin Dose 1 PATCH; Start 01/06/19 at 09:00 Aspirin (Ecotrin) 325 mg DAILY PO Last administered on 01/10/19at 08:05; Admin Dose 325 MG; Start 01/06/19 at 09:00 Clopidogrel Bisulfate (plaVIX) 75 mg DAILY PO Last administered on 01/10/19at 08:05; Admin Dose 75 MG; Start 01/06/19 at 09:00 Miscellaneous Information 1 ea NOTE XX ; Start 01/06/19 at 01:30 Glucose (Glutose) 15 gm Q15M PRN PO DECREASED GLUCOSE; Start 01/06/19 at 01:30 Glucose (Glutose) 22.5 gm Q15M PRN PO DECREASED GLUCOSE; Start 01/06/19 at 01:30 Dextrose (D50w Syringe) 25 ml Q15M PRN IV DECREASED GLUCOSE; Start 01/06/19 at 01:30 Dextrose (D50w Syringe) 50 ml Q15M PRN IV DECREASED GLUCOSE; Start 01/06/19 at 01:30 Glucagon (Glucagen) 1 mg Q15M PRN IM DECREASED GLUCOSE; Start 01/06/19 at 01:30 Glucose (Glutose) 15 gm Q15M PRN BUCCAL DECREASED GLUCOSE; Start 01/06/19 at 01:30 Atorvastatin Calcium (Lipitor) 80 mg DAILY PO Last administered on 01/10/19at 08:05; Admin Dose 80 MG; Start 01/06/19 at 09:30 Insulin Aspart (Novolog Insulin Pen) (Adult SC Insulin - Mild Algorithm)... AC MEALS AND BEDTIME SC Last administered on 01/09/19 17:09; Admin Dose 2 UNIT; Start 01/07/19 at 17:30 Enalapril Maleate (Vasotec) 10 mg BID PO Last administered on 01/10/19 08:05; Admin Dose 10 MG; Start 01/07/19 at 11:00 SEBAS SCHNEIDER MD Jan 10, 2019 10:48
--- NOTE | 2019-01-10 12:38 | CONS ---
Consultation Date/Type/Reason Admit Date/Time Jan 05, 2019 at 17:43 Type of Consult Cardiology Date/Time of Note DATE: 01/10/19 TIME: 12:37 Hx of Present Illness 63 yo with CVA - has multiple non-cardiac risk factors for CVA (HTN, DM) - will repeat ECHO now - consider AROLDO possibly tomorrow # [id number] Past Medical History Home Meds Reported Medications Pravastatin Sodium* (Pravastatin Sodium*) 10 Mg Tablet, 10 MG PO HS, TAB PT GETS THIS FROM [place] 01/05/19 Enalapril Maleate* (Enalapril Maleate*) 10 Mg Tablet, 10 MG PO BID, TAB 01/05/19 Medications Current Medications IV Flush (NS 3 ml) 3 ml PER PROTOCOL IV ; Start 01/05/19 at 19:00 Ondansetron HCl (Zofran Inj) 4 mg Q6H PRN IV NAUSEA/VOMITING; Start 01/05/19 at 19:00 Acetaminophen (Tylenol Tab) 650 mg Q6H PRN PO .PAIN 1-3 OR TEMP; Start 01/05/19 at 19:00 Acetaminophen/ Hydrocodone Bitart ([place] (5/325)) 1 tab Q6H PRN PO .MOD PAIN 4- 6; Start 01/05/19 at 19:00 Morphine Sulfate (morphine) 2 mg Q4H PRN IV .SEVERE PAIN 7-10; Start 01/05/19 at 19:00 Docusate Sodium (Colace) 100 mg Q12H PRN PO .CONSTIPATION; Start 01/05/19 at 19:00 Magnesium Hydroxide (Milk Of Mag) 30 ml DAILY PRN PO .CONSTIPATION; Start 01/05/19 at 19:00 Famotidine (Pepcid) 20 mg DAILY PO Last administered on 01/10/19at 08:05; Admin Dose 20 MG; Start 01/05/19 at 19:00 Lorazepam (Ativan) 0.5 mg Q6H PRN IV ANXIETY; Start 01/05/19 at 19:00 Albuterol/ Ipratropium (Duoneb) 3 ml Q4H RESP THERAPY PRN HHN SHORTNESS OF BREATH; Start 01/05/19 at 19:00 Hydralazine HCl (Apresoline) 10 mg Q6H PRN IV ELEVATED BLOOD PRESSURE Last administered on 01/09/19at 12:02; Admin Dose 10 MG; Start 01/05/19 at 19:00 Nitroglycerin (Nitroglycerin (Sl Tab) 0.4 Mg) 1 tab Q5M PRN SL ANGINA; Start 01/05/19 at 19:00 Nicotine (Nicoderm 21 Mg/ 24hr) 1 patch DAILY TRANSDERM Last administered on 01/10/19at 08:05; Admin Dose 1 PATCH; Start 01/06/19 at 09:00 Aspirin (Ecotrin) 325 mg DAILY PO Last administered on 01/10/19 08:05; Admin Dose 325 MG; Start 01/06/19 at 09:00 Clopidogrel Bisulfate (plaVIX) 75 mg DAILY PO Last administered on 01/10/19 08:05; Admin Dose 75 MG; Start 01/06/19 at 09:00 Miscellaneous Information 1 ea NOTE XX ; Start 01/06/19 at 01:30 Glucose (Glutose) 15 gm Q15M PRN PO DECREASED GLUCOSE; Start 01/06/19 at 01:30 Glucose (Glutose) 22.5 gm Q15M PRN PO DECREASED GLUCOSE; Start 01/06/19 at 01:30 Dextrose (D50w Syringe) 25 ml Q15M PRN IV DECREASED GLUCOSE; Start 01/06/19 at 01:30 Dextrose (D50w Syringe) 50 ml Q15M PRN IV DECREASED GLUCOSE; Start 01/06/19 at 01:30 Glucagon (Glucagen) 1 mg Q15M PRN IM DECREASED GLUCOSE; Start 01/06/19 at 01:30 Glucose (Glutose) 15 gm Q15M PRN BUCCAL DECREASED GLUCOSE; Start 01/06/19 at 01:30 Atorvastatin Calcium (Lipitor) 80 mg DAILY PO Last administered on 01/10/19at 08:05; Admin Dose 80 MG; Start 01/06/19 at 09:30 Insulin Aspart (Novolog Insulin Pen) (Adult SC Insulin - Mild Algorithm)... AC MEALS AND BEDTIME SC Last administered on 01/10/19at 11:52; Admin Dose 3 UNIT; Start 01/07/19 at 17:30 Enalapril Maleate (Vasotec) 10 mg BID PO Last administered on 01/10/19 08:05; Admin Dose 10 MG; Start 01/07/19 at 11:00 Allergies: Coded Allergies: No Known Allergy (Unverified , 01/05/19) Past Surgical History Past Surgical Hx: no surgical history Social History Alcohol Use: none Smoking Status: Current every day smoker Drug Use: none Exam/Review of Systems Vital Signs Vitals Vital Signs Date Temp Pulse Resp B/P (MAP) Pulse Ox O2 O2 Flow FiO2 Time Delivery Rate 01/10/19 98.6 74 16 141/83 98 11:14 (102) 01/09/19 Room Air 15:28 Intake and Output 01/09/19 01/09/19 01/10/19 1515:00 23:00 07:00 IntakeIntake Total 800 ml 480 ml 400 ml BalanceBalance 800 ml 480 ml 400 ml Labs Result Diagram: 01/10/1952201/10/19522 Results 24hrs Laboratory Tests Test 01/09/19 17:03 01/09/19 21:11 01/10/19 05:23 01/10/19 07:52 Bedside Glucose 197 165 141 White Blood Count 8.6 Red Blood Count 5.68 Hemoglobin 14.3 Hematocrit 43.1 Mean Corpuscular Volume 75.9 L Mean Corpuscular 25.2 L Hemoglobin Mean Corpuscular 33.2 Hemoglobin Concent Red Cell Distribution 14.2 Width Platelet Count 257 Mean Platelet Volume 11.4 H Immature Granulocytes % 0.300 Neutrophils % 59.0 Lymphocytes % 30.1 Monocytes % 6.7 Eosinophils % 3.3 Basophils % 0.6 Nucleated Red Blood 0.0 Cells % Immature Granulocytes # 0.030 Neutrophils # 5.1 Lymphocytes # 2.6 Monocytes # 0.6 Eosinophils # 0.3 Basophils # 0.1 Nucleated Red Blood 0.0 Cells # Sodium Level 141 Potassium Level 4.0 Chloride Level 104 Carbon Dioxide Level 28 Anion Gap 9 Blood Urea Nitrogen 19 Creatinine 0.87 Est Glomerular Filtrat > 60 Rate mL/min Glucose Level 142 Calcium Level 9.2 Test 01/10/19 11:42 Bedside Glucose 222 H Medications Medications Current Medications IV Flush (NS 3 ml) 3 ml PER PROTOCOL IV ; Start 01/05/19 at 19:00 Ondansetron HCl (Zofran Inj) 4 mg Q6H PRN IV NAUSEA/VOMITING; Start 01/05/19 at 19:00 Acetaminophen (Tylenol Tab) 650 mg Q6H PRN PO .PAIN 1-3 OR TEMP; Start 01/05/19 at 19:00 Acetaminophen/ Hydrocodone Bitart ([place] (5/325)) 1 tab Q6H PRN PO .MOD PAIN 4- 6; Start 01/05/19 at 19:00 Morphine Sulfate (morphine) 2 mg Q4H PRN IV .SEVERE PAIN 7-10; Start 01/05/19 at 19:00 Docusate Sodium (Colace) 100 mg Q12H PRN PO .CONSTIPATION; Start 01/05/19 at 19:00 Magnesium Hydroxide (Milk Of Mag) 30 ml DAILY PRN PO .CONSTIPATION; Start 01/05/19 at 19:00 Famotidine (Pepcid) 20 mg DAILY PO Last administered on 01/10/19at 08:05; Admin Dose 20 MG; Start 01/05/19 at 19:00 Lorazepam (Ativan) 0.5 mg Q6H PRN IV ANXIETY; Start 01/05/19 at 19:00 Albuterol/ Ipratropium (Duoneb) 3 ml Q4H RESP THERAPY PRN HHN SHORTNESS OF BREATH; Start 01/05/19 at 19:00 Hydralazine HCl (Apresoline) 10 mg Q6H PRN IV ELEVATED BLOOD PRESSURE Last administered on 01/09/19at 12:02; Admin Dose 10 MG; Start 01/05/19 at 19:00 Nitroglycerin (Nitroglycerin (Sl Tab) 0.4 Mg) 1 tab Q5M PRN SL ANGINA; Start 01/05/19 at 19:00 Nicotine (Nicoderm 21 Mg/ 24hr) 1 patch DAILY TRANSDERM Last administered on 01/10/19at 08:05; Admin Dose 1 PATCH; Start 01/06/19 at 09:00 Aspirin (Ecotrin) 325 mg DAILY PO Last administered on 01/10/19at 08:05; Admin Dose 325 MG; Start 01/06/19 at 09:00 Clopidogrel Bisulfate (plaVIX) 75 mg DAILY PO Last administered on 01/10/19at 08:05; Admin Dose 75 MG; Start 01/06/19 at 09:00 Miscellaneous Information 1 ea NOTE XX ; Start 01/06/19 at 01:30 Glucose (Glutose) 15 gm Q15M PRN PO DECREASED GLUCOSE; Start 01/06/19 at 01:30 Glucose (Glutose) 22.5 gm Q15M PRN PO DECREASED GLUCOSE; Start 01/06/19 at 01:30 Dextrose (D50w Syringe) 25 ml Q15M PRN IV DECREASED GLUCOSE; Start 01/06/19 at 01:30 Dextrose (D50w Syringe) 50 ml Q15M PRN IV DECREASED GLUCOSE; Start 01/06/19 at 01:30 Glucagon (Glucagen) 1 mg Q15M PRN IM DECREASED GLUCOSE; Start 01/06/19 at 01:30 Glucose (Glutose) 15 gm Q15M PRN BUCCAL DECREASED GLUCOSE; Start 01/06/19 at 01:30 Atorvastatin Calcium (Lipitor) 80 mg DAILY PO Last administered on 01/10/19 08:05; Admin Dose 80 MG; Start 01/06/19 at 09:30 Insulin Aspart (Novolog Insulin Pen) (Adult SC Insulin - Mild Algorithm)... AC MEALS AND BEDTIME SC Last administered on 01/10/19at 11:52; Admin Dose 3 UNIT; Start 01/07/19 at 17:30 Enalapril Maleate (Vasotec) 10 mg BID PO Last administered on 01/10/19at 08:05; Admin Dose 10 MG; Start 01/07/19 at 11:00 CHARLES CABEZAS MD Jan 10, 2019 12:38
--- NOTE | 2019-01-10 14:21 | CONS ---
DATE OF ADMISSION: 01/05/2019 DATE OF CONSULTATION: 01/10/2019 TYPE OF CONSULTATION: Cardiology. REFERRING PHYSICIAN: Dr. Pearson. REASON FOR EVALUATION: Evaluation for AROLDO. HISTORY OF PRESENT ILLNESS: Mr. Sierra is a 63-year-old gentleman with history of hypertension, dys lipidemia, hemoglobin 9.4, history of longstanding diabetes and prior tobacco use, who comes to the [facility] now for evaluation of neurologic changes. He was diagnosed with an acute CVA. The plan is f or patient for medical optimization to see patient in consultation for AROLDO evaluation per neurology e valuation. The patient does not have any focal murmurs on my examination. I think it would be reaso nable to initiate workup up with a 2D echo now. Once a 2D echo is obtained, we will be in considerat ion of a AROLDO, will defer to Dr. Burroughs possibly tomorrow. For now, conservative therapy would be ex pected. PAST MEDICAL HISTORY: 1. Hypertension. 2. Dyslipidemia. 3. History of diabetes. 4. History of hazardous tobacco use, now MRI with acute CVA. ALLERGIES: NO KNOWN ALLERGIES. SOCIAL HISTORY: The patient . FAMILY HISTORY: Negative for sudden cardiac . There is history of diabetes in the family. CURRENT MEDICATIONS INCLUDE: 1. Insulin. 2. Atorvastatin 80 mg. 3. Nicotine patch. 4. Aspirin 325. 5. Plavix . 6. . 7. Atrovent. REVIEW OF SYSTEMS: CONSTITUTIONAL: No fevers, no chills, no recent weight change. HEENT: No changes in vision or hearing. CARDIAC: No chest pain reported. RESPIRATORY: No shortness of breath. GASTROINTESTINAL: No nausea, vomiting, patient . NEUROLOGIC: CVA changes with left-sided weakness most in the legs, and also facial droop which appea rs to be getting better now. PHYSICAL EXAMINATION: VITAL SIGNS: Temperature 98.6%. Her blood pressure is 141/103. GENERAL: He is a well-nourished gentleman in no acute distress, alert and oriented x3, aware of his condition. HEAD: Normocephalic, atraumatic. Eyes anicteric. NECK: Supple. JVD 6-7 cm. No lymphadenopathy. HEART: Regular, soft systolic murmur. PMI is minimally displaced. There is . LUNGS: Coarse with evidence of . ABDOMEN: Bowel sounds are present. There is no . ____: intact. EXTREMITIES: No clubbing, cyanosis. Trace edema. LABORATORY DATA: White blood cells 6.8, hemoglobin 7.3, platelets 257. INR is 0.8. Sodium 141, pot assium 4.0. His BUN 10, creatinine 0.8. Troponin is negative. ASSESSMENT AND PLAN: 1. Acute cerebrovascular accident. Patient has acute CVA. There is no tachybrady arrhythmia or atr ial fibrillation noted here. Per neurology recommendations, a AROLDO was requested. We will follow up with a 2D echo and defer to Dr. Burroughs for possible AROLDO tomorrow. 2. Hypertension. Blood pressure well controlled. Continue to adjust medicines as needed. 3. The patient has aspirin, beta pamela, statin which is appropriate. 4. Diabetes. Continue diabetic optimization and care. Patient shown poorly controlled diabet es. 5. Tobacco use. Discontinue advised. I would like to thank Dr. Pearson for recommending this patient for my evaluation. Dictated By: CHARLES CABEZAS MD ML/HERNANDEZ Conf#: [id number] DID#: [id number] CC: TERESSA PEARSON;*EndCC*
[2019-01-11] VITALS (16 sets, daily range): BP systolic 113–148; BP diastolic 75–86; PULSE 64–84; RESP 13–21
[2019-01-11] MEDS: Insulin NOVOLOG SS MILD Algorithm (SS with meals and bedtime) SC SCH ×2 (07:50→11:30)
[2019-01-11] MEDS: ATORVASTATIN 80 MG TAB PO SCH (08:02)
[2019-01-11] MEDS: FAMOTIDINE 20 MG TAB PO SCH (08:02)
[2019-01-11] MEDS: CLOPIDOGREL 75 MG TAB PO SCH (08:02)
[2019-01-11] MEDS: ASPIRIN (EC) 325 MG TAB PO SCH (08:02)
[2019-01-11] MEDS: ENALAPRIL 10 MG TAB PO SCH (08:03)
[2019-01-11] MEDS: NICOTINE (21 MG/24 HR) PATCH TRANSDERM SCH (08:10)
--- NOTE | 2019-01-11 12:08 | PREAC ---
Date/Time of Note Date/Time of Note DATE: 01/11/19 TIME: 12:05 Anesthesia Eval and Record Evaluation Time Pre-Procedure Interview DATE: 01/11/19 TIME: 12:05 Age 63 Sex male NPO: 8 hrs Preoperative diagnosis acute CVA; further cardiac workup Planned procedure AROLDO Past Medical History Past Medical History: Includes Cardio: HTN, Dyslipidemia, Other (cva) Endo: Diabetes Pulm: Smoking Hx Neuro: CVA Surgery & Anesthesia Issues No known issue Meds Anticoagulation: Yes Beta Felipe within 24 hr: No Reason Beta Felipe not given: Pt. not on B-Felipe Reported Medications Pravastatin Sodium* (Pravastatin Sodium*) 10 Mg Tablet, 10 MG PO HS, TAB PT GETS THIS FROM [place] 01/05/19 Enalapril Maleate* (Enalapril Maleate*) 10 Mg Tablet, 10 MG PO BID, TAB 01/05/19 Current Medications IV Flush (NS 3 ml) 3 ml PER PROTOCOL IV ; Start 01/05/19 at 19:00 Ondansetron HCl (Zofran Inj) 4 mg Q6H PRN IV NAUSEA/VOMITING; Start 01/05/19 at 19:00 Acetaminophen (Tylenol Tab) 650 mg Q6H PRN PO .PAIN 1-3 OR TEMP; Start 01/05/19 at 19:00 Acetaminophen/ Hydrocodone Bitart ([place] (5/325)) 1 tab Q6H PRN PO .MOD PAIN 4- 6; Start 01/05/19 at 19:00 Morphine Sulfate (morphine) 2 mg Q4H PRN IV .SEVERE PAIN 7-10; Start 01/05/19 at 19:00 Docusate Sodium (Colace) 100 mg Q12H PRN PO .CONSTIPATION; Start 01/05/19 at 19:00 Magnesium Hydroxide (Milk Of Mag) 30 ml DAILY PRN PO .CONSTIPATION; Start 01/05/19 at 19:00 Famotidine (Pepcid) 20 mg DAILY PO Last administered on 01/11/19at 08:02; Admin Dose 20 MG; Start 01/05/19 at 19:00 Lorazepam (Ativan) 0.5 mg Q6H PRN IV ANXIETY; Start 01/05/19 at 19:00 Albuterol/ Ipratropium (Duoneb) 3 ml Q4H RESP THERAPY PRN HHN SHORTNESS OF BREATH; Start 01/05/19 at 19:00 Hydralazine HCl (Apresoline) 10 mg Q6H PRN IV ELEVATED BLOOD PRESSURE Last administered on 01/09/19at 12:02; Admin Dose 10 MG; Start 01/05/19 at 19:00 Nitroglycerin (Nitroglycerin (Sl Tab) 0.4 Mg) 1 tab Q5M PRN SL ANGINA; Start 01/05/19 at 19:00 Nicotine (Nicoderm 21 Mg/ 24hr) 1 patch DAILY TRANSDERM Last administered on 01/10/19at 08:05; Admin Dose 1 PATCH; Start 01/06/19 at 09:00 Aspirin (Ecotrin) 325 mg DAILY PO Last administered on 01/11/19 08:02; Admin Dose 325 MG; Start 01/06/19 at 09:00 Clopidogrel Bisulfate (plaVIX) 75 mg DAILY PO Last administered on 01/11/19at 08:02; Admin Dose 75 MG; Start 01/06/19 at 09:00 Miscellaneous Information 1 ea NOTE XX ; Start 01/06/19 at 01:30 Glucose (Glutose) 15 gm Q15M PRN PO DECREASED GLUCOSE; Start 01/06/19 at 01:30 Glucose (Glutose) 22.5 gm Q15M PRN PO DECREASED GLUCOSE; Start 01/06/19 at 01:30 Dextrose (D50w Syringe) 25 ml Q15M PRN IV DECREASED GLUCOSE; Start 01/06/19 at 01:30 Dextrose (D50w Syringe) 50 ml Q15M PRN IV DECREASED GLUCOSE; Start 01/06/19 at 01:30 Glucagon (Glucagen) 1 mg Q15M PRN IM DECREASED GLUCOSE; Start 01/06/19 at 01:30 Glucose (Glutose) 15 gm Q15M PRN BUCCAL DECREASED GLUCOSE; Start 01/06/19 at 01:30 Atorvastatin Calcium (Lipitor) 80 mg DAILY PO Last administered on 01/11/19at 08:02; Admin Dose 80 MG; Start 01/06/19 at 09:30 Insulin Aspart (Novolog Insulin Pen) (Adult SC Insulin - Mild Algorithm)... AC MEALS AND BEDTIME SC Last administered on 01/11/19at 07:50; Admin Dose 1 UNIT; Start 01/07/19 at 17:30 Enalapril Maleate (Vasotec) 10 mg BID PO Last administered on 01/11/19at 08:03; Admin Dose 10 MG; Start 01/07/19 at 11:00 Meds reviewed: Yes Allergies Coded Allergies: No Known Allergy (Unverified , 01/05/19) Allergies Reviewed: Yes Labs/Studies Labs Reviewed: Reviewed by anesthesiologist Result Diagram: 01/11/19 0525 01/11/19 0525 Laboratory Tests 01/11/19 05:25 test: N/A Studies: ECG Pre-procedure Exam Last vitals Vital Signs Date Temp Pulse Resp B/P (MAP) Pulse Ox O2 O2 Flow FiO2 Time Delivery Rate 01/11/19 97.6 67 16 128/78 98 11:21 (95) 01/11/19 Nasal 03:40 Cannula Airway: Adequate mouth opening, Adequate thyromental dist Mallampati: Mallampati II Teeth: Normal Lung: Normal Heart: Normal ASA Physical Status ASA physical status: 3 Emergency: None Planned Anesthetic General/MAC: MAC Planned Pain Management Parenteral pain med Pre-operative Attestations Prior to commencing anesthesia and surgery, the patient was re-evaluated, there was verification of: *The patient's identity *The results of appropriate recent lab work and preoperative vital signs *The above evaluation not changing prior to induction *Anesthetic plan, risk benefits, alternative and complications discussed with patient/family; questions answered; patient/family understands, accepts and wishes to proceed. KENNA NAZARIO CRNA Jan 11, 2019 12:08
[2019-01-11] MEDS ORDERED: PROPOFOL 40 ML ONE (12:11)
[2019-01-11] MEDS ORDERED: LIDOCAINE 2% (SDV) 5 ML INJ ONE (12:11)
[2019-01-11] MEDS ORDERED: GLYCOPYRROLATE 0.4 MG INJ ONE (12:11)
--- NOTE | 2019-01-11 12:42 | CONS ---
Assessment/Plan Assessment/Plan Hospital Course (Demo Recall) IMP: 1.CVA-acute assess for source of embolus 2.HTN 3.DM 4.Tobacco dependence Recc: -Tele -Continue asa/plavix -Contineu ACEI -AROLDO today Consultation Date/Type/Reason Admit Date/Time Jan 05, 2019 at 17:43 Initial Consult Date 01/10/19 Type of Consult Cardiology Reason for Consultation assess for intracardiac source of embolus Requesting Provider: TERESSA PEARSON Date/Time of Note DATE: 01/11/19 TIME: 12:39 Exam/Review of Systems Vital Signs Vitals Vital Signs Date Temp Pulse Resp B/P (MAP) Pulse Ox O2 O2 Flow FiO2 Time Delivery Rate 01/11/19 97.6 67 16 128/78 98 11:21 (95) 01/11/19 Nasal 03:40 Cannula Intake and Output 01/10/19 01/10/19 01/11/19 1515:00 23:00 07:00 IntakeIntake Total 350 ml 350 ml 250 ml BalanceBalance 350 ml 350 ml 250 ml Exam Exam Review of Systems: CONSTITUTIONAL: No fevers, chills. PULMONARY: No sob CARDIOVASCULAR: No chest pain/palpitations GASTROINTESTINAL: No nausea/vomiting. GENITOURINARY: No hematuria/dysuria. MUSCULOSKELETAL: No myagias/arthalgias. PSYCHIATRIC: The patient denies depression. NEUROLOGIC: LE weakness Constitutional: alert Psych: no complaints Head: normocephalic ENMT: mucosa pink and moist Neck: supple, jvd (8 cm water) Respiratory: clear to auscultation Cardiovascular: regular rate and rhythm Gastrointestinal: soft, non-tender Musculoskeletal: muscle tone (normal) Extremities: edema (none) Neurological: focal weakness (LE) Labs Result Diagram: 01/11/19 0525 01/11/19 0525 Results 24hrs Laboratory Tests Test 01/10/19 17:19 01/10/19 21:06 01/11/19 05:25 01/11/19 07:32 Bedside Glucose 123 130 141 White Blood Count 8.3 Red Blood Count 5.70 Hemoglobin 14.4 Hematocrit 44.0 Mean Corpuscular 77.2 L Volume Mean Corpuscular 25.3 L Hemoglobin Mean Corpuscular 32.7 Hemoglobin Concent Red Cell Distribution 14.2 Width Platelet Count 249 Mean Platelet Volume 11.6 H Immature Granulocytes 0.500 H % Neutrophils % 59.8 Lymphocytes % 28.4 Monocytes % 6.8 Eosinophils % 3.9 Basophils % 0.6 Nucleated Red Blood 0.0 Cells % Immature Granulocytes 0.040 H # Neutrophils # 4.9 Lymphocytes # 2.3 Monocytes # 0.6 Eosinophils # 0.3 Basophils # 0.1 Nucleated Red Blood 0.0 Cells # Sodium Level 142 Potassium Level 4.2 Chloride Level 104 Carbon Dioxide Level 27 Anion Gap 11 Blood Urea Nitrogen 21 H Creatinine 0.87 Est Glomerular > 60 Filtrat Rate mL/min Glucose Level 161 Calcium Level 9.6 Test 01/11/19 11:33 Bedside Glucose 148 Medications Medications Current Medications IV Flush (NS 3 ml) 3 ml PER PROTOCOL IV ; Start 01/05/19 at 19:00 Ondansetron HCl (Zofran Inj) 4 mg Q6H PRN IV NAUSEA/VOMITING; Start 01/05/19 at 19:00 Acetaminophen (Tylenol Tab) 650 mg Q6H PRN PO .PAIN 1-3 OR TEMP; Start 01/05/19 at 19:00 Acetaminophen/ Hydrocodone Bitart ([place] (5/325)) 1 tab Q6H PRN PO .MOD PAIN 4- 6; Start 01/05/19 at 19:00 Morphine Sulfate (morphine) 2 mg Q4H PRN IV .SEVERE PAIN 7-10; Start 01/05/19 at 19:00 Docusate Sodium (Colace) 100 mg Q12H PRN PO .CONSTIPATION; Start 01/05/19 at 19:00 Magnesium Hydroxide (Milk Of Mag) 30 ml DAILY PRN PO .CONSTIPATION; Start 01/05/19 at 19:00 Famotidine (Pepcid) 20 mg DAILY PO Last administered on 01/11/19at 08:02; Admin Dose 20 MG; Start 01/05/19 at 19:00 Lorazepam (Ativan) 0.5 mg Q6H PRN IV ANXIETY; Start 01/05/19 at 19:00 Albuterol/ Ipratropium (Duoneb) 3 ml Q4H RESP THERAPY PRN HHN SHORTNESS OF BREATH; Start 01/05/19 at 19:00 Hydralazine HCl (Apresoline) 10 mg Q6H PRN IV ELEVATED BLOOD PRESSURE Last administered on 01/09/19at 12:02; Admin Dose 10 MG; Start 01/05/19 at 19:00 Nitroglycerin (Nitroglycerin (Sl Tab) 0.4 Mg) 1 tab Q5M PRN SL ANGINA; Start 01/05/19 at 19:00 Nicotine (Nicoderm 21 Mg/ 24hr) 1 patch DAILY TRANSDERM Last administered on 01/10/19 08:05; Admin Dose 1 PATCH; Start 01/06/19 at 09:00 Aspirin (Ecotrin) 325 mg DAILY PO Last administered on 01/11/19 08:02; Admin Dose 325 MG; Start 01/06/19 at 09:00 Clopidogrel Bisulfate (plaVIX) 75 mg DAILY PO Last administered on 01/11/19 08:02; Admin Dose 75 MG; Start 01/06/19 at 09:00 Miscellaneous Information 1 ea NOTE XX ; Start 01/06/19 at 01:30 Glucose (Glutose) 15 gm Q15M PRN PO DECREASED GLUCOSE; Start 01/06/19 at 01:30 Glucose (Glutose) 22.5 gm Q15M PRN PO DECREASED GLUCOSE; Start 01/06/19 at 01:30 Dextrose (D50w Syringe) 25 ml Q15M PRN IV DECREASED GLUCOSE; Start 01/06/19 at 01:30 Dextrose (D50w Syringe) 50 ml Q15M PRN IV DECREASED GLUCOSE; Start 01/06/19 at 01:30 Glucagon (Glucagen) 1 mg Q15M PRN IM DECREASED GLUCOSE; Start 01/06/19 at 01:30 Glucose (Glutose) 15 gm Q15M PRN BUCCAL DECREASED GLUCOSE; Start 01/06/19 at 01:30 Atorvastatin Calcium (Lipitor) 80 mg DAILY PO Last administered on 01/11/19 08:02; Admin Dose 80 MG; Start 01/06/19 at 09:30 Insulin Aspart (Novolog Insulin Pen) (Adult SC Insulin - Mild Algorithm)... AC MEALS AND BEDTIME SC Last administered on 01/11/19 07:50; Admin Dose 1 UNIT; Start 01/07/19 at 17:30 Enalapril Maleate (Vasotec) 10 mg BID PO Last administered on 01/11/19 08:03; Admin Dose 10 MG; Start 01/07/19 at 11:00 SEBAS GRAY Jan 11, 2019 12:42
--- NOTE | 2019-01-11 12:46 | SIPON ---
Date/Time of Note Date/Time of Note DATE: 01/11/19 TIME: 12:45 Operative Report Preoperative Diagnosis 1.Acute CVA Postoperative Diagnosis 1.Acute CVA 2.No definite findings for an intracardiac source of embolus Operation/Procedure Performed 1.AROLDO Surgeon see signature line quality assistant 1.Lacey Anesthesia: MAC Estimated blood loss: none Transfusion Required none Specimen none Grafts/Implants none Complications none SEBAS GRAY Jan 11, 2019 12:46
--- NOTE | 2019-01-11 12:51 | PAC ---
Date/Time of Note Date/Time of Note DATE: 01/11/19 TIME: 12:49 Post-Anesthesia Notes Post-Anesthesia Note Last documented vital signs Vital Signs Date Temp Pulse Resp B/P (MAP) Pulse Ox O2 O2 Flow FiO2 Time Delivery Rate 01/11/19 97.6 67 16 128/78 98 11:21 (95) 01/11/19 Nasal 03:40 Cannula Activity: WNL Respiratory function: WNL Cardiovascular function: WNL Mental status: Baseline Pain reasonably controlled: Yes Hydration appropriate: Yes Nausea/Vomiting absent: Yes Comments BP128/79 [id number]% hr 78 t 97.4f rr 16 [id number] KENNA NAZARIO CRNA Jan 11, 2019 12:51
[2019-01-11] MEDS ORDERED: FENTAnyl 50 MCG/ML VIAL IV PRN ×2 (13:00)
[2019-01-11] MEDS ORDERED: HYDROmorphONE 1 MG/5 ML IV SYRINGE IV PRN ×2 (13:00)
[2019-01-11] MEDS ORDERED: ONDANSETRON 4 MG INJ IV PRN (13:00)
[2019-01-11] MEDS ORDERED: OXYCODONE/ACETAMINOPHEN (5/325) TAB PO PRN (13:00)
--- NOTE | 2019-01-11 13:08 | CONS ---
Assessment/Plan Assessment/Plan Assessment/Plan (Recall) 63 M c/ known HTN and tobacco dependence, who presents for evaluation of left hemiparesis and dysarthria concerning for acute stroke. MRI brain confirms acute R pontine and L ADOBE ARCHITECT territory infarcts...which could in theory result from basilar artery thromboembolism.. CTA Head showed intracranial atherosclerosis....though without basliar artery involvement... TTE was unrevealing.. LDL 95; A1C >9%, UDS Neg P: Await AROLDO to further evaluate for possible cardioembolic source.. 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 Will follow clinically Consultation Date/Type/Reason Admit Date/Time Jan 05, 2019 at 17:43 Type of Consult Neurology Reason for Consultation left sided weakness Requesting Provider: TERESSA PEARSON Date/Time of Note DATE: 01/11/19 TIME: 13:08 24 HR Interval Summary Free Text/Dictation Awaits AROLDO Exam/Review of Systems Exam Vitals Vital Signs Date Temp Pulse Resp B/P (MAP) Pulse Ox O2 O2 Flow FiO2 Time Delivery Rate 01/11/19 97.6 67 16 128/78 98 11:21 (95) 01/11/19 Nasal 03:40 Cannula Intake and Output 01/10/19 01/10/19 01/11/19 1515:00 23:00 07:00 IntakeIntake Total 350 ml 350 ml 250 ml BalanceBalance 350 ml 350 ml 250 ml Results Result Diagram: 01/11/19 0525 01/11/19 0525 Results 24hrs Laboratory Tests Test 01/10/19 17:19 01/10/19 21:06 01/11/19 05:25 01/11/19 07:32 Bedside Glucose 123 130 141 White Blood Count 8.3 Red Blood Count 5.70 Hemoglobin 14.4 Hematocrit 44.0 Mean Corpuscular 77.2 L Volume Mean Corpuscular 25.3 L Hemoglobin Mean Corpuscular 32.7 Hemoglobin Concent Red Cell Distribution 14.2 Width Platelet Count 249 Mean Platelet Volume 11.6 H Immature Granulocytes 0.500 H % Neutrophils % 59.8 Lymphocytes % 28.4 Monocytes % 6.8 Eosinophils % 3.9 Basophils % 0.6 Nucleated Red Blood 0.0 Cells % Immature Granulocytes 0.040 H # Neutrophils # 4.9 Lymphocytes # 2.3 Monocytes # 0.6 Eosinophils # 0.3 Basophils # 0.1 Nucleated Red Blood 0.0 Cells # Sodium Level 142 Potassium Level 4.2 Chloride Level 104 Carbon Dioxide Level 27 Anion Gap 11 Blood Urea Nitrogen 21 H Creatinine 0.87 Est Glomerular > 60 Filtrat Rate mL/min Glucose Level 161 Calcium Level 9.6 Test 01/11/19 11:33 Bedside Glucose 148 Medications Medication Current Medications IV Flush (NS 3 ml) 3 ml PER PROTOCOL IV ; Start 01/05/19 at 19:00 Ondansetron HCl (Zofran Inj) 4 mg Q6H PRN IV NAUSEA/VOMITING; Start 01/05/19 at 19:00 Acetaminophen (Tylenol Tab) 650 mg Q6H PRN PO .PAIN 1-3 OR TEMP; Start 01/05/19 at 19:00 Acetaminophen/ Hydrocodone Bitart ([place] (5/325)) 1 tab Q6H PRN PO .MOD PAIN 4- 6; Start 01/05/19 at 19:00 Morphine Sulfate (morphine) 2 mg Q4H PRN IV .SEVERE PAIN 7-10; Start 01/05/19 at 19:00 Docusate Sodium (Colace) 100 mg Q12H PRN PO .CONSTIPATION; Start 01/05/19 at 19:00 Magnesium Hydroxide (Milk Of Mag) 30 ml DAILY PRN PO .CONSTIPATION; Start 01/05/19 at 19:00 Famotidine (Pepcid) 20 mg DAILY PO Last administered on 01/11/19at 08:02; Admin Dose 20 MG; Start 01/05/19 at 19:00 Lorazepam (Ativan) 0.5 mg Q6H PRN IV ANXIETY; Start 01/05/19 at 19:00 Albuterol/ Ipratropium (Duoneb) 3 ml Q4H RESP THERAPY PRN HHN SHORTNESS OF BREATH; Start 01/05/19 at 19:00 Hydralazine HCl (Apresoline) 10 mg Q6H PRN IV ELEVATED BLOOD PRESSURE Last administered on 01/09/19at 12:02; Admin Dose 10 MG; Start 01/05/19 at 19:00 Nitroglycerin (Nitroglycerin (Sl Tab) 0.4 Mg) 1 tab Q5M PRN SL ANGINA; Start 01/05/19 at 19:00 Nicotine (Nicoderm 21 Mg/ 24hr) 1 patch DAILY TRANSDERM Last administered on 01/10/19at 08:05; Admin Dose 1 PATCH; Start 01/06/19 at 09:00 Aspirin (Ecotrin) 325 mg DAILY PO Last administered on 01/11/19at 08:02; Admin Dose 325 MG; Start 01/06/19 at 09:00 Clopidogrel Bisulfate (plaVIX) 75 mg DAILY PO Last administered on 01/11/19 08:02; Admin Dose 75 MG; Start 01/06/19 at 09:00 Miscellaneous Information 1 ea NOTE XX ; Start 01/06/19 at 01:30 Glucose (Glutose) 15 gm Q15M PRN PO DECREASED GLUCOSE; Start 01/06/19 at 01:30 Glucose (Glutose) 22.5 gm Q15M PRN PO DECREASED GLUCOSE; Start 01/06/19 at 01:30 Dextrose (D50w Syringe) 25 ml Q15M PRN IV DECREASED GLUCOSE; Start 01/06/19 at 01:30 Dextrose (D50w Syringe) 50 ml Q15M PRN IV DECREASED GLUCOSE; Start 01/06/19 at 01:30 Glucagon (Glucagen) 1 mg Q15M PRN IM DECREASED GLUCOSE; Start 01/06/19 at 01:30 Glucose (Glutose) 15 gm Q15M PRN BUCCAL DECREASED GLUCOSE; Start 01/06/19 at 01:30 Atorvastatin Calcium (Lipitor) 80 mg DAILY PO Last administered on 01/11/19at 08:02; Admin Dose 80 MG; Start 01/06/19 at 09:30 Insulin Aspart (Novolog Insulin Pen) (Adult SC Insulin - Mild Algorithm)... AC MEALS AND BEDTIME SC Last administered on 01/11/19at 07:50; Admin Dose 1 UNIT; Start 01/07/19 at 17:30 Enalapril Maleate (Vasotec) 10 mg BID PO Last administered on 01/11/19at 08:03; Admin Dose 10 MG; Start 01/07/19 at 11:00 Hydromorphone HCl (Dilaudid) 0.2 mg PACU PRN IV MILD PAIN 1-3; Start 01/11/19 at 13:00; Stop 01/11/19 at 17:00 Hydromorphone HCl (Dilaudid) 0.4 mg PACU PRN IV MOD PAIN 4-6; Start 01/11/19 at 13:00; Stop 01/11/19 at 17:00 Fentanyl (Sublimaze) 25 mcg PACU ORDER PRN IV MILD PAIN 1-3; Start 01/11/19 at 13:00; Stop 01/11/19 at 17:00 Fentanyl (Sublimaze) 50 mcg PACU ORDER PRN IV MOD PAIN 4-6; Start 01/11/19 at 13:00; Stop 01/11/19 at 17:00 Oxycodone/ Acetaminophen (Percocet (5/ 325)) 1 tab PACU ORDER PRN PO .PAIN 1-5; Start 01/11/19 at 13:00; Stop 01/11/19 at 17:00 Ondansetron HCl (Zofran Inj) 4 mg PACU ORDER PRN IV NAUSEA/VOMITING; Start 01/11/19 at 13:00; Stop 01/11/19 at 17:00 SANTIAGO HONEYCUTT Jan 11, 2019 13:08
[2019-01-11] MEDS ORDERED: ATOR-2 PO (14:51)
[2019-01-11] MEDS ORDERED: CLOP75TA28 PO (14:51)
[2019-01-11] MEDS ORDERED: ASPI325T32 PO (14:51)
--- NOTE | 2019-01-11 15:10 | PDOCDIS ---
Discharge Instructions DIAGNOSIS Discharge Diagnosis Acute stroke Diabetes mellitus type II CONDITION [id number] Patient Condition: [id number] Good HOME CARE INSTRUCTIONS: [id number] Special Diet: [id number] Carbohydrate controlled FOLLOW UP/APPOINTMENTS Follow-up Plan 1. Take all medication as prescribed. Continue your blood pressure medicine enalapril. 2. Take atorvastatin as prescribed. This is a cholesterol medicine which reduces your risk of repeat stroke and also heart attack. It sometimes can cause inflammation of the liver or muscles. 3. Take aspirin for 3 months as prescribed, and then stop after April 2019. The risk of repeat stroke is highest in the first few months after a stroke. This medicine slightly increases your risk of bruising and bleeding. 4. Take clopidogrel (Plavix) as prescribed. You should take this lifelong, it reduces risk of future stroke. It increases your risk of bruising and bleeding. 5. Go through your insurance to find a primary care doctor; and make an appointment in 1-2 weeks. 6. You have diabetes which causes you to have high blood sugar. This condition increases your risk of heart attack and stroke. When uncontrolled, it can also increase your risk of kidney failure, blindness, and nonhealing wounds on your feet that can eventually lead to amputation. Right now your diabetes is not severe enough to need medications, but in the future your doctor may decide you need treatment. For now you should try to exercise and lose weight. SEBAS SCHNEIDER MD Jan 11, 2019 15:10
--- NOTE | 2019-01-11 16:19 | RADRPT ---
Echocardiogram Report Patient Name: Floresita BARRYent ID: [id number] : 1955 (63y 2m)Study Date: 01/10/2019 2:08:01 PM Gender: MAccession #: [id number] Tech: EjNikhil Hargrove [facility] Location: [id number] Ref.Physician: CHARLES CABEZAS Height(Cm): BSA: Weight(Kg): Quality: AdequateOrder Physician: CHARLES CABEZAS Account #: Procedures: Echocardiographic Report: Transthoracic echocardiogram with complete 2D, M-Mode, and doppler examination. Indications: Cerebrovascular Accident. Measurements: 2D/M Mode Doppler Measurement Value Normal Range Measurement Value Normal Range LVIDd 2D 4.6 [ 4.2 - 5.8 ] cm AV Peak Jaison 1.4 [ 100.0 - 170.0 ] cm/sec LVIDs 2D 2.7 [ 2.5 - 4.0 ] cm AV Peak PG 8.0 [ 2.0 - 9.0 ] mmHg LVPWd 2D 1.1 [ 0.6 - 1.0 ] cm AI Peak PG 31.0 mmHg IVSd 2D 1.1 [ 0.6 - 1.0 ] cm AI Peak Jaison 2.8 cm/sec AoR Diam 2D 3.5 [ 2.6 - 3.4 ] cm AI PHT 646.0 msec EDV 2D 98.8 [ 62.0 - 150.0 ] ml LVOT Peak Jaison 1.2 [ 70.0 - 110.0 ] cm/sec ESV 2D 26.3 [ 21.0 - 61.0 ] ml LVOT Peak PG 6.0 [ 2.0 - 6.0 ] mmHg EF 2D 73.4 [ 52.0 - 72.0 ] percent MV E Peak Jaison 0.6 [ 60.0 - 130.0 ] cm/sec LA Dimen 2D 3.1 [ 3.0 - 4.0 ] cm MV A Peak Jaison 0.9 [ 100.0 - 120.0 ] cm/sec MV E/A 0.8 [ 0.8 - 1.5 ] ratio MV Decel Time 173 [ 104 - 258 ] msec Lat E` Jaison 0.1 [ 10.0 - 15.0 ] cm/sec Lateral E/E` 7.1 [ 1.0 - 2.0 ] ratio MV E/A 0.8 [ 0.8 - 1.5 ] ratio TR Peak Jaison 2.3 [ 100.0 - 280.0 ] cm/sec TR Peak PG 22.0 mmHg RVSP 25.0 [ 10.0 - 36.0 ] mmHg RA Pressure 3.0 mmHg Findings: Left Ventricle: Normal left ventricular systolic function. Normal left ventricular cavity size. Mild concentric left ventricular hypertrophy. Ejection fraction is visually estimated at 60 %. Tissue Doppler/Mitral Doppler indices are consistent with impaired relaxation (Stage I diastolic dysfunction). Right Ventricle: Normal right ventricular size. Normal right ventricular systolic function. Left Atrium: The left atrium is normal in size. Right Atrium: The right atrium is normal in size. Mitral Valve: Normal appearance and function of the mitral valve with trace physiologic regurgitation. Aortic Valve: No hemodynamically significant aortic stenosis by doppler. Aortic cusps appear mildly calcified. Mild aortic valve regurgitation. Tricuspid Valve: Normal appearance of the tricuspid valve. Normal right ventricular systolic pressure. The estimated Peak RVSP is 25 mmHg. There is mild tricuspid regurgitation. Pulmonic Valve: Normal pulmonic valve appearance. Pericardium: Normal pericardium with no significant pericardial effusion. Aorta: Normal aortic root. IVC: Normal size and normal respiratory collapse consistent with normal right atrial pressure. Conclusions: Normal left ventricular systolic function. Normal left ventricular cavity size. Mild concentric left ventricular hypertrophy. Ejection fraction is visually estimated at 60 %. Tissue Doppler/Mitral Doppler indices are consistent with impaired relaxation (Stage I diastolic dysfunction). Normal appearance and function of the mitral valve with trace physiologic regurgitation. No hemodynamically significant aortic stenosis by doppler. Aortic cusps appear mildly calcified. Mild aortic valve regurgitation. Normal appearance of the tricuspid valve. Normal right ventricular systolic pressure. The estimated Peak RVSP is 25 mmHg. There is mild tricuspid regurgitation. Electronically Signed By: Harry Burroughs 2019-01-11 16:18:34 PDT
--- NOTE | 2019-01-11 16:59 | DS ---
Date/Time of Note Date/Time of Note DATE: 01/11/19 TIME: 16:56 Discharge Summary Admission/Discharge Info Admit Date/Time Jan 05, 2019 at 17:43 Discharge Date/Time January 11, 2019 Discharge Diagnosis Acute stroke Diabetes mellitus type II Patient Condition: Good Hx of Present Illness 63-year-old man past medical history of hypertension, smoking, who presents with left-sided leg and arm weakness. Symptoms began early this morning, patient also noticed that he was having some difficulty speaking when he woke up today. The last known well was last night at 10 PM when patient went to sleep, although patient stated that he had some difficulty sleeping but does not know why. He states that he also feels off balance when he is walking. Denies chest pain, shortness of breath, upper lower GI bleeding, fever chills, diarrhea constipation, nausea or vomiting. When the patient came in today code stroke was called and patient was given Plavix loading dose and aspirin. Brain imaging head and neck CT today did not show any acute bleeds or ischemic infarcts, however there are findings of chronic multifocal intracranial atherosclerotic disease in bilateral MCAs and [employer]. Hospital Course He was taken for brain MRI which showed 11 x 6 mm acute/recent infarct in the right estella, likely the etiology of patient's left lower extremity weakness. No e vidence of hemorrhagic conversion and 9 x 5 mm acute/infarct involving the left parietal/periatrial white matter. No evidence of hemorrhagic conversion. He was started on simvastatin 80, aspirin 325, and plavix 75. He was taken for TTE and AROLDO, neither of which showed significant valve disease, PFO or other R- >L shunt; or thrombus. The patient was also found to have newly diagnosed diabetes mellitus with HgbA1C 9. But he had minimal insulin requirements and does not need medical treatment after discharge. He did very well with PT and OT and does not have any residual deficits after his stroke. Home Meds Active Scripts Aspirin (Aspir-[place]) 325 Mg Tablet., 325 MG PO DAILY, #90 TAB 1 Refill Prov:SEBAS SCHNEIDER MD 01/11/19 Atorvastatin* (Atorvastatin*) 80 Mg Tablet, 80 MG PO DAILY, #90 TAB 1 Refill Prov:SEBAS SCHNEIDER MD 01/11/19 Clopidogrel Bisulfate (Clopidogrel) 75 Mg Tablet, 75 MG PO DAILY, #90 TAB 1 Refill Prov:SEBAS SCHNEIDER MD 01/11/19 Reported Medications Enalapril Maleate* (Enalapril Maleate*) 10 Mg Tablet, 10 MG PO BID, TAB 01/05/19 Discontinued Reported Medications Pravastatin Sodium* (Pravastatin Sodium*) 10 Mg Tablet, 10 MG PO HS, TAB PT GETS THIS FROM [place] 01/05/19 Follow-up Plan 1. Take all medication as prescribed. Continue your blood pressure medicine enalapril. 2. Take atorvastatin as prescribed. This is a cholesterol medicine which reduces your risk of repeat stroke and also heart attack. It sometimes can cause inflammation of the liver or muscles. 3. Take aspirin for 3 months as prescribed, and then stop after April 2019. The risk of repeat stroke is highest in the first few months after a stroke. This medicine slightly increases your risk of bruising and bleeding. 4. Take clopidogrel (Plavix) as prescribed. You should take this lifelong, it reduces risk of future stroke. It increases your risk of bruising and bleeding. 5. Go through your insurance to find a primary care doctor; and make an appointment in 1-2 weeks. 6. You have diabetes which causes you to have high blood sugar. This condition increases your risk of heart attack and stroke. When uncontrolled, it can also increase your risk of kidney failure, blindness, and nonhealing wounds on your feet that can eventually lead to amputation. Right now your diabetes is not severe enough to need medications, but in the future your doctor may decide you need treatment. For now you should try to exercise and lose weight. Primary Care Provider Care Physician No Primary Time spent on discharge: > 30 minutes Pending Labs Laboratory Tests Test 01/10/19 17:19 01/10/19 21:06 01/11/19 05:25 01/11/19 07:32 Bedside 123 130 141 Glucose mg/dL (70-220) mg/dL (70-220) mg/dL (70-220) White Blood 8.3 Count 10^3/ul (4.8-1 0.8) Red Blood 5.70 Count 10^6/ul (4.70- 6.10) Hemoglobin 14.4 g/dl (14.0-18. 0) Hematocrit 44.0 % (42.0-52.0) Mean 77.2 Corpuscular fl (82.0-101.0 Volume ) Mean 25.3 Corpuscular pg (29.0-33.0) Hemoglobin Mean 32.7 Corpuscular g/dl (32.0-37. Hemoglobin Conc 0) ent Red Cell 14.2 Distribution % (11.5-14.5) Width Platelet Count 249 10^3/UL (140-4 15) Mean Platelet 11.6 Volume fl (7.4-10.4) Immature 0.500 Granulocytes % % (0.001-0.429 ) Neutrophils % 59.8 % (39.0-77.0) Lymphocytes % 28.4 % (15.0-51.0) Monocytes % 6.8 % (0.0-11.0) Eosinophils % 3.9 % (0.0-7.0) Basophils % 0.6 % (0.0-2.0) Nucleated Red 0.0 Blood Cells % /100WBC (0.0-0 .0) Immature 0.040 Granulocytes # 10^3/ul (0.0-0 .031) Neutrophils # 4.9 10^3/ul (1.6-7 .5) Lymphocytes # 2.3 10^3/ul (0.8-2 .9) Monocytes # 0.6 10^3/ul (0.3-0 .9) Eosinophils # 0.3 10^3/ul (0.0-0 .5) Basophils # 0.1 10^3/ul (0.0-0 .1) Nucleated Red 0.0 Blood Cells # 10^3/ul (0.0-0 .0) Sodium Level 142 mmol/L (135-14 4) Potassium 4.2 Level mmol/L (3.5-5. 1) Chloride Level 104 mmol/L (97-110 ) Carbon Dioxide 27 Level mmol/L (21-31) Anion Gap 11 (5-13) Blood Urea 21 Nitrogen mg/dl (7-20) Creatinine 0.87 mg/dl (0.61-1. 24) Est Glomerular > 60 Filtrat mL/min (>60) Rate mL/min Glucose Level 161 mg/dl (70-220) Calcium Level 9.6 mg/dl (8.4-10. 2) Test 01/11/19 11:33 Bedside 148 Glucose mg/dL (70-220) SEBAS SCHNEIDER MD Jan 11, 2019 16:59
--- NOTE | 2019-01-11 19:29 | CARRPT ---
DATE OF PROCEDURE: 01/11/2019 TYPE OF PROCEDURE: 1. Transesophageal echo. 2. MAC anesthesia under direction of anesthesiologist at bedside. BRIEF HISTORY AND HOSPITAL COURSE: Mr. Sierra is a 63-year-old male with history of hypertension, d iabetes mellitus, and prior ongoing tobacco usage, who presented with acute CVA. Cardiology consult was requested to further assess for possible intracardiac source of embolus and etiology of acute CVA . PROCEDURE: After informed consent was obtained, the patient was brought to the [facility] intensive care unit where he was connected to continuous O2 saturation monitoring, blood pres sure cuff cycling every 2 to 3 minutes, and continuous telemetry monitoring. The patient had a bite block placed in his mouth was given propofol MAC anesthesia in order to achieve an adequate level of anesthesia. Using a transesophageal probe, the patient's esophagus was intubated. Using multiplanar imaging and color flow Doppler interrogation, the patient's intracardiac structures were adequately interrogated and the transesophageal probe was then used to assess the descending, transverse, and as cending aorta, and subsequently removed. Subsequently, at this time, the patient was allowed to awak e from his anesthetized state, completing procedure. There were no noted complications. FINDINGS: 1. No definite findings of left atrial appendage thrombus or spontaneous contrast. Left atrial appe ndage velocity approximately 50 cm per second. 2. No definite findings of interatrial patent foramen ovale or other interatrial septal defect by co chris flow Doppler interrogation of septum as well as agitated saline contrast injection. 3. Grossly normal left ventricular size and systolic function. 4. Normal-appearing aortic valve apparatus with mild to moderate aortic regurgitation. 5. Normal-appearing mitral valve apparatus with trace mitral regurgitation. 6. Pulmonic apparatus somewhat poorly visualized. No pulmonic regurgitation. 7. Normal-appearing tricuspid valve apparatus with moderate tricuspid regurgitation. 8. Moderate atherosclerotic plaquing of the patient's descending and transverse aorta. IMPRESSION: No definite findings of intracardiac source of embolus by this transesophageal echo stud y. RECOMMENDATIONS: At this time, would continue to assess for alternative etiology of the patient's CV A. Dictated By: SEBAS JONES/HERNANDEZ Conf#: [id number] DID#: [id number] CC: TERESSA PEARSON;*EndCC*
== END 2019-01-11 16:59 | disposition home or self-care (01) | DRG 65 ==
LOC: E/R 16:05 → 6WM 17:43
PROVIDERS: ADMIT Hospitalist; ATTEND Internal Medicine
DX: I63.9 Cerebral infarction, unspecified (principal); G81.94 Hemiplegia, unspecified affecting left nondominant side; E11.8 Type 2 diabetes mellitus with unspecified complications; R47.1 Dysarthria and anarthria; I10 Essential (primary) hypertension; F17.200 Nicotine dependence, unspecified, uncomplicated; R47.81 Slurred speech; E78.5 Hyperlipidemia, unspecified
CPT/HCPCS: 36415; 70450; 70496; 70498; 70551; 71045; 80048; 80061; 80307; 81001; 82550; 82553; 82962; 83036; 83735; 84100; 84439; 84443; 84484; 85025; 85610; 85730; 92610; 93005; 93306; 93312; 93320; 93325; 93880; 97110; 97116; 97161; 97166; J0360; J1815; Q9967